=== PATIENT | male | born 1940 | race Caucasian/White ===

== ENCOUNTER 2022-07-21 06:23 | Observation (INO) ==
--- NOTE | 2022-03-19 10:25 | PAT Medication Instructions ---
Medication Instructions Date of Service March 19, 2022 Home Medications aspirin 81 mg tablet,delayed release 81 mg PO QAM chlorthalidone 25 mg tablet 25 mg PO Q OTHER DAY potassium chloride 10 mEq capsule,extended release 10 meq PO QAM apixaban 5 mg tablet (Eliquis) 5 mg PO BID baclofen 10 mg tablet 10 mg PO TID furosemide 20 mg tablet 20 mg PO QAM multivitamin 1 tab PO QAM olmesartan 20 mg tablet 20 mg PO QAM sertraline 50 mg tablet 50 mg PO HS ASK your prescriber and surgeon apixaban 5 mg tablet (Eliquis) 5 mg PO BID (in order for spinal anesthesia, Apixaban/Eliquis needs to be stopped 72 hours/3 days before surgery. Please check if okay with doctor that prescribes this to you) DO NOT take the morning of surgery chlorthalidone 25 mg tablet 25 mg PO Q OTHER DAY potassium chloride 10 mEq capsule,extended release 10 meq PO QAM baclofen 10 mg tablet 10 mg PO TID furosemide 20 mg tablet 20 mg PO QAM multivitamin 1 tab PO QAM olmesartan 20 mg tablet 20 mg PO QAM Take morning of surgery With a small sip of water, OTHERWISE NOTHING TO EAT OR DRINK AFTER MIDNIGHT: aspirin 81 mg tablet,delayed release 81 mg PO QAM (continue as normal unless told otherwise by surgeon) Take evening before surgery baclofen 10 mg tablet 10 mg PO TID sertraline 50 mg tablet 50 mg PO HS Other Notes If you have any questions please call us at [phone] or [phone] or [phone] or [phone]
--- NOTE | 2022-03-22 12:30 | Anesthesiology Consultation ---
Date of Service March 22, 2022 Assessment & Plan (1) Encounter for pre-operative examination: Plan - surgery re-scheduled to 07/07/22 by surgeon's office. - cardiology pre-op evaluation 03/23/22, PH Dr. Ellis. - PCP pre-op evaluation 03/26/22. - will request most recent lower extremity ultrasound. - pacemaker: [employer]. - Outpatient joint assessment: Patient is currently scheduled for inpatient pathway. If re-evaluated pending system levels during current pandemic/surgeon requests outpatient pathway, patient is not acceptable candidate for outpatient joint program from anesthesia standpoint. Chart Review Chart Review: Pending: Refer to Additional Notes / Consult section and Patient seen in Pre Admission Testing Teaching & Discussion Pre-Anesthesia Teaching/Discussion Notes: Instructed NPO after midnight before surgery, except medications with 15 cc of water. Medication instructions provided according to the PAT guidelines. History Surgery Operation Date: 07/07/22 08:50 Proposed Procedures p Left Total Hip Arthroplasty - Bari Tobias MD Height/Weight Height: 5 ft 5 in Weight: 95.254 kg Allergies Allergy/AdvReac Type Severity Reaction Status Date / Time Iodinated Contrast Media Allergy Mild Shakiness Verified 03/17/22 11:20 Medications Home Medications Medication Instructions Recorded Confirmed Last Taken aspirin 81 mg tablet,delayed 81 mg PO QAM 11/05/19 03/17/22 02/06/20 release chlorthalidone 25 mg tablet 25 mg PO Q OTHER DAY 11/05/19 03/17/22 02/11/20 potassium chloride 10 mEq 10 meq PO QAM 11/05/19 03/17/22 02/11/20 capsule,extended release apixaban 5 mg tablet (Eliquis) 5 mg PO BID 03/17/22 03/17/22 Unknown baclofen 10 mg tablet 10 mg PO TID 03/17/22 03/17/22 Unknown furosemide 20 mg tablet 20 mg PO QAM 03/17/22 03/17/22 Unknown multivitamin 1 tab PO QAM 03/17/22 03/17/22 Unknown sertraline 50 mg tablet 50 mg PO HS 03/17/22 03/17/22 Unknown flurbiprofen PRN pain 03/22/22 Unknown Additional Notes: Pt was advised to discuss flurbiprofen with surgeon's office. He verbalized understanding and agreement, denied questions or concerns. 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 Corado -will see on 03/23/22- had procedure to check wires 10/02/2021 ,done at [facility] Dr Ellis Vertigo stable per pt Patient denies h/o stroke, seizures, heart attack, heart failure, DM, or blood transfusions. Exercise / Class Metabolic Activity III < 4 Walking/Shop/Light housework (denies CP or SOB with usual activities, less than 8 steps in home) Past Family History Family History Uncle Diabetes Father Colon cancer Past Surgical History Surgical History History of carpal tunnel surgery of left wrist History of carpal tunnel surgery of right wrist History of colonoscopy History of nasal surgery History of tonsillectomy S/P cardiac pacemaker procedure Past Anesthesia History No Hx of Anesthesia Complications and No Family Hx of Anesthesia Complications History of PONV No Hx of PONV and No Hx of Motion Sickness Social History Smoking Status: Never smoker tobacco type: smokeless tobacco Do You Dip or Chew Tobacco: Yes (advised) Hx Alcohol Use: Yes Alcohol type: beer alcohol intake frequency: a few times a month Hx Substance Use: No substance use type: does not use Review of Systems Patient denies chest pain, shortness of breath, dyspnea on exertion, snoring, witnessed apneas, reflux, fever, chills, cough, wheezing, or palpitations. Physical Exam Vital Signs Vitals BP 137/75 P 57 TEMP 97.7 SP02 96% on RA RESP 18 Physical Full cervical extension range of motion without pain TMD 3.5 finger breadths Mallampati Score 3 Dentition: intact, upper partial; denies chipped or loose teeth, caps/crowns, implants or bridges Lungs: normal respiratory effort. Clear throughout to auscultation, no adventitious breath sounds Cardiac: regular rate and rhythm, no murmurs noted Carotid arteries: negative bruit bilat Lab Results Anesthesia Preop Results Results Anesthesia Widget: WBC 6.73 K/ul (4.8-10.8) 03/22/22 Hgb 13.5 g/dl (14.0-18.0) L 03/22/22 Hct 40.0 % (40.1-51.0) L 03/22/22 Plt 180 K/uL (130-400) 03/22/22 Na 140 mmol/L (136-145) 03/22/22 K 4.8 mmol/L (3.5-5.1) 03/22/22 Cl 104 mmol/L (98-107) 03/22/22 CO2 31 mmol/L (21-32) 03/22/22 BUN 29 mg/dl (6-23) H 03/22/22 Creat 1.33 mg/dl (0.6-1.4) 03/22/22 Glucose Level 76 mg/dl (70-99(Fasting)) 03/22/22 PT 10.9 Seconds (9.0-12.0) 03/22/22 PTT 29.7 Seconds (21.0-31.0) 03/22/22 INR 1.0 (0.9-1.1) 03/22/22 Urine Color Yellow 03/22/22 Urine Appearance Clear (Clear) 03/22/22 Urine pH 5.0 (4.5-7.5) 03/22/22 Urine Specific [place] 1.013 (1.000-1.030) 03/22/22 Urine Protein Negative (Negative) 03/22/22 Urine Glucose (UA) Negative (Negative) 03/22/22 Urine Ketones Negative (Negative) 03/22/22 Urine Blood Negative (Negative) 03/22/22 Urine Nitrite Negative (Negative) 03/22/22 Urine Bilirubin Negative (Negative) 03/22/22 Urine Urobilinogen Negative (Negative) 03/22/22 Urine Leukocyte Esterase Negative (Negative) 03/22/22 Blood Type O Positive 03/22/22 Antibody Screen NEGATIVE 03/22/22 Testing Electrocardiogram Date: 09/28/21 Ventricular pacing, rate 72 bpm 03/22/22 at PAT appt AV dual paced with prolonged AV conduction, rate 50 bpm Chest X-Ray Date: 03/22/22 No pneumothorax. No pleural effusions. No focal lung consolidations to suggest a pneumonia. No evidence for pulmonary edema. The heart is top normal in size. There is left-sided pacemaker. There are low lung volumes. Degenerative changes noted within the thoracic spine. Mildly tortuous thoracic aorta. IMPRESSION: No acute process. Echocardiogram Date: 09/28/21 EF 56% No regional wall motion abnormalities were noted Moderately thickened trileaflet aortic valve, no aortic stenosis. Trace aortic regurgitation Pacer/ICD electrode noted in RV/RA Stress Test Date: 07/26/17 Pharmacologic MPHR not listed on report EF 58% Normal without evidence for pharmacologically induced ischemia COVID-19 Risk Screen Screening Information COVID-19 Screen Date: 03/22/22 Exposure 21 Days Family/Household +COVID Last 21 Days: No Exposure 10 Days Any COVID Exposure Last 10 Days: No Symptoms Last 10 Days Experienced COVID Sx Last 10 Days: No + COVID 0-90 Days COVID + in Last 0-90 Days: No
--- NOTE | 2022-06-29 09:15 | PAT Medication Instructions ---
Medication Instructions Date of Service June 29, 2022 Home Medications aspirin 81 mg tablet,delayed release 81 mg PO QAM chlorthalidone 25 mg tablet 25 mg PO Q OTHER DAY potassium chloride 10 mEq capsule,extended release 10 meq PO QAM apixaban 5 mg tablet (Eliquis) 5 mg PO BID baclofen 10 mg tablet 10 mg PO TID furosemide 20 mg tablet 20 mg PO QAM multivitamin 1 tab PO QAM sertraline 50 mg tablet 50 mg PO HS ASK your prescriber and surgeon apixaban 5 mg tablet (Eliquis) 5 mg PO BID (in order for spinal anesthesia, Apixaban/Eliquis needs to be stopped 72 hours/3 days before surgery. Please check if okay with doctor that prescribes this to you) DO NOT take the morning of surgery chlorthalidone 25 mg tablet 25 mg PO Q OTHER DAY potassium chloride 10 mEq capsule,extended release 10 meq PO QAM baclofen 10 mg tablet 10 mg PO TID furosemide 20 mg tablet 20 mg PO QAM multivitamin 1 tab PO QAM Take morning of surgery With a small sip of water, OTHERWISE NOTHING TO EAT OR DRINK AFTER MIDNIGHT: aspirin 81 mg tablet,delayed release 81 mg PO QAM (continue as normal unless t old otherwise by surgeon) Take evening before surgery baclofen 10 mg tablet 10 mg PO TID sertraline 50 mg tablet 50 mg PO HS Other Notes If you have any questions please call us at [phone] or [phone] or [phone] or [phone]
--- NOTE | 2022-06-29 15:42 | Anesthesiology Consultation ---
Date of Service June 29, 2022 Assessment & Plan (1) Encounter for pre-operative examination: - COVID screening: Per assessment on 06/29: No known COVID-19 positive contacts or current COVID-19 related symptoms. Travel screen negative. Patient vaccinated. At surgeon discretion if preop Covid testing being done. - Outpatient joint assessment: Pt currently scheduled for inpatient pathway. If surgeon requests review for outpatient joint pathway, patient is not recommended candidate for outpatient joint program from anesthesia standpoint. - Hematology office visit (06/01/22): "Per the patient, he noted bilateral lower extremity swelling for approximately 1 month, which prompted his primary care provider to obtain ultrasounds. Bilateral venous duplex ultrasounds of the lower extremity on 01/07/22 reported a non- occlusive right popliteal vein deep vein thrombosis.. He started on Eliquis.. Repeat ultrasound after 2 months of the Eliquis (03/03/22) reported a stable appearance of the non- occlusive deep vein thrombosis of the right popliteal vein with extension into the tibial peroneal trunk. The remainder of the deep veins were patent. Third ultrasound on 05/05/22 again reported a chronic non- occlusive thrombus of the proximal popliteal vein to the tibial peroneal trunk.. He states he is pending a total left hip replacement.. June 2022.. Patient has a chronic deep vein thrombosis, which has been stable over several ultrasounds.. The likelihood the patient will have clearance of the deep vein thrombosis is low. Patient advised that a chronic deep vein thrombosis do not necessitate lifelong anticoagulation.. As the patient is pending a left hip replacement, would recommend continuing his anticoagulation until after this procedure.. Patient may hold the Eliquis 24-48 hours prior to surgery and resume at the discretion of the surgeon.. No indication for further hypercoagulability work-up." Patient was made aware at subsequent PAT visit 06/29/22 that Eliquis needs to be held 72 hours prior to surgery for spinal anesthesia- he was advised to check with prescriber if okay to hold 72 hours preoperatively- voiced understanding. - Cardiac hx: Per patient, surgeon is arranging preop cardiology evaluation (Dr. Corado- not scheduled yet). Awaiting surgeon-ordered cardiology preop evaluation (Dr. Corado, appt TBD) as well as most recent pacer check. - Elevated creatinine: Preop labs done 06/29/22 show elevated creatinine at 1.55. No known hx of CKD reported or noted through chart review of available records. Note sent to PCP- awaiting response (Dr. Magen Acosta). Chart Review Chart Review: Patient seen in Pre Admission Testing History Surgery Operation Date: 07/21/22 09:20 Proposed Procedures p Left Total Hip Arthroplasty - Bari Tobias MD Height/Weight Height: 5 ft 5 in Weight: 98.7 kg Allergies Allergy/AdvReac Type Severity Reaction Status Date / Time Iodinated Contrast Media Allergy Mild Shakiness Verified 06/29/22 08:25 Medications Home Medications Medication Instructions Recorded Confirmed Last Taken aspirin 81 mg tablet,delayed 81 mg PO QAM 11/05/19 06/29/22 02/06/20 release chlorthalidone 25 mg tablet 25 mg PO Q OTHER DAY 11/05/19 06/29/22 02/11/20 potassium chloride 10 mEq 10 meq PO QAM 11/05/19 06/29/22 02/11/20 capsule,extended release apixaban 5 mg tablet (Eliquis) 5 mg PO BID 03/17/22 06/29/22 Unknown baclofen 10 mg tablet 10 mg PO TID 03/17/22 06/29/22 Unknown furosemide 20 mg tablet 20 mg PO QAM 03/17/22 06/29/22 Unknown multivitamin 1 tab PO QAM 03/17/22 06/29/22 Unknown sertraline 50 mg tablet 50 mg PO HS 03/17/22 06/29/22 Unknown Past Medical History Medical History 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 [facility] Cardiology/Dr. Corado. Vertigo stable per pt Exercise / Class Metabolic Activity III < 4 Walking/Shop/Light housework Past Family History Family History Uncle Diabetes Father Colon cancer Other No family history of adverse response to anesthesia Past Surgical History Surgical History History of carpal tunnel surgery of left wrist History of carpal tunnel surgery of right wrist History of colonoscopy History of nasal surgery History of tonsillectomy S/P cardiac pacemaker procedure Past Anesthesia History No Hx of Anesthesia Complications and No Family Hx of Anesthesia Complications History of PONV No Hx of PONV and No Hx of Motion Sickness Social History Smoking Status: Never smoker tobacco type: smokeless tobacco Do You Dip or Chew Tobacco: No (Quit 02/2022) Hx Alcohol Use: Yes Alcohol type: beer alcohol intake frequency: a few times a month Hx Substance Use: No substance use type: does not use Review of Systems Patient denies chest pain, shortness of breath, fever, chills, cough, wheezing, palpitations. Physical Exam Vital Signs VITALS BP 103/64 P 71 TEMP 98.4 SP02 94%RA RESP 16 PHYSICAL Full cervical extension range of motion. Full TMJ range of motion. TMD 3 finger breaths Mallampati Score 3 Dentition: upper partial Lungs: clear throughout to auscultation Cardiac: regular rate and rhythm, distant heart sounds Spine: normal Carotid arteries: negative bruit Extremities: no edema Lab Results Anesthesia Preop Results Results Anesthesia Widget: WBC 7.50 K/ul (4.8-10.8) 06/29/22 Hgb 13.9 g/dl (14.0-18.0) L 06/29/22 Hct 40.5 % (42.0-52.0) L 06/29/22 Plt 211 K/uL (130-400) 06/29/22 Na 140 mmol/L (136-145) 06/29/22 K 4.0 mmol/L (3.5-5.1) 06/29/22 Cl 105 mmol/L (98-107) 06/29/22 CO2 28 mmol/L (21-32) 06/29/22 BUN 34 mg/dl (6-23) H 06/29/22 Creat 1.55 mg/dl (0.6-1.4) H 06/29/22 Glucose Level 89 mg/dl (70-99(Fasting)) 06/29/22 PT 11.0 Seconds (9.0-12.0) 06/29/22 PTT 28.6 Seconds (21.0-31.0) 06/29/22 INR 1.0 (0.9-1.1) 06/29/22 Urine Color Dark Yellow 06/29/22 Urine Appearance Clear (Clear) 06/29/22 Urine pH 5.5 (4.5-7.5) 06/29/22 Urine Specific [place] 1.018 (1.000-1.030) 06/29/22 Urine Protein Negative (Negative) 06/29/22 Urine Glucose (UA) Negative (Negative) 06/29/22 Urine Ketones Negative (Negative) 06/29/22 Urine Blood Negative (Negative) 06/29/22 Urine Nitrite Negative (Negative) 06/29/22 Urine Bilirubin Negative (Negative) 06/29/22 Urine Urobilinogen Negative (Negative) 06/29/22 Urine Leukocyte Esterase Negative (Negative) 06/29/22 Blood Type O Positive 06/29/22 Antibody Screen NEGATIVE 06/29/22 Testing Electrocardiogram Date: 03/22/22 AV dual paced with prolonged AV conduction, rate 50 bpm Chest X-Ray Date: 03/22/22 No pneumothorax. No pleural effusions. No focal lung consolidations to suggest a pneumonia. No evidence for pulmonary edema. The heart is top normal in size. There is left-sided pacemaker. There are low lung volumes. Degenerative changes noted within the thoracic spine. Mildly tortuous thoracic aorta. IMPRESSION: No acute process. Echocardiogram Date: 09/28/21 EF 56% No regional wall motion abnormalities were noted Moderately thickened trileaflet aortic valve, no aortic stenosis. Trace aortic regurgitation Pacer/ICD electrode noted in RV/RA Stress Test Date: 07/26/17 Pharmacologic MPHR not listed on report EF 58% Normal without evidence for pharmacologically induced ischemia COVID-19 Risk Screen Screening Information COVID-19 Screen Date: 06/29/22 Exposure 21 Days Family/Household +COVID Last 21 Days: No Exposure 10 Days Any COVID Exposure Last 10 Days: No Symptoms Last 10 Days Experienced COVID Sx Last 10 Days: No + COVID 0-90 Days COVID + in Last 0-90 Days: No
[~2022-07-21 06:23] MED LIST: LR 60ML/HR IV SCH; ROPIVACAINE 0.5% HCL/PF 150 MG, BUPIVACAINE 0.75% MPF 20 ML, EPINEPHrine 0.15 MG, Ketor... INFIL SCH; TRANEXAMIC ACID 1,000 MG x 1 **For Topical Use TOP SCH; ceFAZolin 2000MG 2,000 MG/15 ML SYR IV SCH
[2022-07-21] MEDS ORDERED: BUPIVACAINE 0.5 % 5 MG/1 ML PF 10ML VIAL ONE (06:25)
--- NOTE | 2022-07-21 06:39 | History & Physical Bridge Note ---
Date of Service July 21, 2022 History & Physical Bridge Note I have examined the patient, reviewed the History & Physical and in the interval since the performance of the History & Physical I have noted the following changes of clinical significance: consent obtained/site verified.no changes noted
[2022-07-21] MEDS ORDERED: MIDAZOLAM HCL 1 MG/ML 2ML VIAL ONE (07:38)
[2022-07-21] MEDS ORDERED: fentaNYL citrate 100 MCG/2 ML VIAL ONE (07:38)
[2022-07-21] MEDS ORDERED: ORTHO JOINT ANESTHETIC ONE (08:58)
[2022-07-21] MEDS ORDERED: ATROPINE SULFATE 0.1 MG/ML 10ML SYR IV PRN (09:11)
[2022-07-21] MEDS ORDERED: fentaNYL citrate 100 MCG/2 ML VIAL IV PRN (09:11)
[2022-07-21] MEDS ORDERED: ONDANSETRON INJ 2 MG/ML 2 ML VIAL IV PRN ×2 (09:11→12:47)
[2022-07-21] MEDS ORDERED: ePHEDrine sulfate 50 MG/ML AMP IV PRN (09:11)
[2022-07-21] MEDS ORDERED: PROPOFOL IV EMULSION 10 MG/ML 20 ML VIAL IV ONE ×2 (09:33→10:17)
[2022-07-21] MEDS ORDERED: ePHEDrine sulfate 50 MG/ML SYR ONE (09:33)
[2022-07-21] MEDS ORDERED: ONDANSETRON INJ 2 MG/ML 2 ML VIAL ONE (09:33)
[2022-07-21] MEDS ORDERED: PHENYLEPHRINE HCL 10 MG/ML VIAL ONE (10:11)
--- NOTE | 2022-07-21 10:46 | Post Operative Brief Note ---
Immediate Post Op Note v1 Date of Surgery July 21, 2022 Pre & Post Diagnosis Operation Date: 07/21/22 09:00 Pre-Op Diagnosis: Left Hip Degenerative Joint Disease Post-Op Diagnosis: Left Hip Degenerative Joint Disease I identified the patient and participated in the time-out.: Yes Procedure Operation Date: 07/21/22 09:00 Actual Procedures p Left Total Hip Arthroplasty, Uncemented(Left) - Bari Tobias MD Surgeon Bari Tobias MD Thrill Performer Ramesh/MS 2 Rahul Estimated Blood Loss 100 Findings Consistent with Post-Op Diagnosis
--- NOTE | 2022-07-21 11:01 | Operative Report ---
Post Operative Report Pre & Post Diagnosis Operation Date: 07/21/22 09:00 Pre-Op Diagnosis: Left Hip Degenerative Joint Disease Post-Op Diagnosis: Left Hip Degenerative Joint Disease I identified the patient and participated in the time-out.: Yes Procedure Operation Date: 07/21/22 09:00 Actual Procedures p Left Total Hip Arthroplasty, Uncemented(Left) - Bari Tobias MD Surgeon TAMIKO Tobias MD Medical Billing Service Ramesh REID/ 2 Rahul Estimated Blood Loss 100 Findings Consistent with Post-Op Diagnosis see operative report Specimens see operative report Drains none Complications none Disposition Accompanied Patient To Recovery: Yes Indications This 81 year old male presented to the office with complaints of persisting left hip pain. He had tried conservative care measures without improvement. Pain was worse with weightbearing and was preventing him from doing activities that he desired. He elected to proceed with surgical intervention in hopes of improving his pain and function. Preoperative imaging was obtained. Description of Procedure The patient was administered a spinal anesthetic and then taken to the operating room where he was given sedation. He was prepped and draped in the usual sterile fashion. Please see Dr. Tobias's operative report for specifics of the procedure. I was present for the entire case from initial patient positioning through final wound closure. Assistance was provided in tissue retraction, hemostasis, trial implant placement, final implant placement, and final wound closure. Patient was taken to the recovery room in satisfactory condition. I attest to the content of the Intraoperative Record and any orders documented therein. Any exceptions are noted below.
--- NOTE | 2022-07-21 11:08 | Operative Report (OR) ---
DATE OF PROCEDURE: 07/21/2022 SURGEON: Bari Tobias MD. COPY CHIEF: Jonathan Chandler PA-C. SECOND COPY CHIEF: FABIAN Ho. PREOPERATIVE DIAGNOSIS: Osteoarthritis, left hip. POSTOPERATIVE DIAGNOSIS: Osteoarthritis, left hip. OPERATION PERFORMED: Noncemented left total hip replacement. PERIOPERATIVE SITUATION: Medically cleared male with intractable hip pain. Physical exam, x-ray, an d clinical history consistent with severe osteoarthritis of his hip. DESCRIPTION OF PROCEDURE: After the patient was appropriately identified, site verified, consent bree ified, the left lower extremity was prepped and draped in the usual routine fashion with the patient in left lateral decubitus position. Posterior approach to the hip was then made. Sharp dissection c arried through skin, blunt dissection down to the fascia. This was then incised under direct vision. The gluteus jessica fascia and the IT band was then split and retractors placed. Care was taken to protect the sciatic nerve. The short external rotators were identified and released. The capsule was then T'd. The hip was the n dislocated. The femoral neck was then resected. There was a large inverted labrum anteriorly. Th ere was a significant disease of the posterior acetabulum. Femoral head was completely denuded of an y cartilage. Excellent exposure was obtained and serial reaming carried up to a 54, and a 54 cup imp acted into appropriate anteversion and inclination. Additional 6.5 x 30 screw was placed with excell ent purchase. The wound was then irrigated. The trial liner was then seated. The hip was then flexed, internally rotated. Serial rasping up to a size 3 was then performed. Trial reduction with a +5 head was very stable, but the hip was slightly short, so we elected to go with the 8.5. The hip was then dislocated. All trial remaining elements removed. The hole eliminator seated after irrigation with Betadine and Pulsavac. The permanent liner seated, permanent head and stem seated. The hip reduced. It was stable in all planes. Leg lengths were just about equal. The wound was irrigated one final time with TXA for 3 minutes and then with Betadine Pulsavac, and th en closed. The short external rotators and capsule closed with #2 Vicryl, the gluteal jessica fascia with the same, the subcutaneous layer deep with the same, and the superficial with 2-0 Vicryl and sta inless steel clips. 40 mL of Orthomix was injected superficially. The wound was then appropriately dressed. The patient was transferred to recovery room in satisfactory condition, having tolerated the procedur e well. SUMMARY OF IMPLANTS: [employer] total hip replacement system, hole eliminator, 54 acetabular shell sector cup, 30 mm x 6.5 screw, 36 x 54 neutral liner, 3 standard Tri-Lock stem, 36+8.5 ceramic head. This is again a [place] acetabular shell sector cup. BONE PATHOLOGY: Pending. CRYSTALLOID: Per anesthesia. DEEP VENOUS THROMBOSIS PROPHYLAXIS: Per protocol. ESTIMATED BLOOD LOSS: Roughly 100 mL. Job ID: [id number]
--- NOTE | 2022-07-21 11:17 | Progress Notes ---
SUBJECTIVE: Postop check status post left total hip replacement. The patient is comfortable in bed. Denies chest pain, shortness of breath, fever, chills, nausea, vomiting or headache. Wound dressing clean, dry, and intact. OBJECTIVE: Vital signs are stable. He is afebrile. Neurovascular check femoral sciatic nerve limited by spinal. IMAGING DATA: X-rays, AP pelvis and hips reveal well-fixed, well-aligned hip replacement on the left . ASSESSMENT: Doing well clinically, status post total hip replacement. PLAN: Continue with care pathway. DVT prophylaxis with Eliquis to start after 24 hours postoperative. Will start at half-strength dose and then at 72 hours get him back on the standard dose. Job ID: [id number]
--- NOTE | 2022-07-21 11:24 | Discharge Summary (DS) ---
DATE OF ADMISSION: 07/21/2022 DATE OF POTENTIAL DISCHARGE: 07/22/2022 CHIEF COMPLAINT: Left hip osteoarthritis, severe. HISTORY OF PRESENT ILLNESS: Medically cleared 81-year-old who has had severe disease. It is markedl y painful and he is limping. He notes that he has difficulty sleeping. He wished to proceed with poole rgical treatment for his hip. Hip replacement is indicated. His surgery was previously postponed due to an insidious onset DVT in his right lower extremity. He also needed some dental work. 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 This was stopped roughly 3 days preop. REVIEW OF SYSTEMS: Reveals no chest pain, shortness of breath, fever, chills, nausea, vomiting or he adache. SOCIAL HISTORY: Reveals he does not smoke. ALLERGIES: ALLERGIC TO IODINE CONTRAST MEDIA. PAST MEDICAL HISTORY: Active problem list includes gait disturbance, hip pain, arthritis in his knee s. PREADMISSION MEDICATIONS: Include aspirin, baclofen, chlorthalidone, Eliquis, ____ibuprofen, furosem eva, mirtazapine, olmesartan, and sertraline. Postop x-rays look excellent. ASSESSMENT AND PLAN: Status post left total hip replacement. Continue with care pathway. Restart h betsy-strength Eliquis after 24 hours postoperatively and resume normal dose after 72 hours postoperati nicoley. Will need a pressure dressing for several weeks. Job ID: [id number]
--- NOTE | 2022-07-21 11:34 | XRay Report ---
XR pelvis 1-2V routine HISTORY: 81 years-old Male S/P L HUANG left hip total joint arthroplasty COMPARISON: Pelvis and hip radiographs 06/08/2022 TECHNIQUE: AP view of the pelvis FINDINGS: Severe osteoarthritis of the right hip. Satisfactory alignment of the left hip total joint arthroplas ty. No acute fracture or malalignment. Lateral skin олег are present along with expected postopera tive soft tissue swelling with deep tissue air. IMPRESSION: Left hip total joint arthroplasty with expected postoperative changes. ACT 112: Negative or not required by law. The above report was generated using voice recognition software. It may contain grammatical, syntax o r spelling errors. Electronically signed by: David Fine M.D. 07/21/2022 11:33 AM
--- NOTE | 2022-07-21 12:27 | Anesthesiology Progress Note ---
Date of Service July 21, 2022 Anesthesia Post Procedure Vital Signs Vital Signs: Temp Pulse Pulse Resp BP Pulse Ox O2 Del Method 07/21/22 12:00 36.5 C 69 15 109/56 L 100 Nasal Cannula 07/21/22 11:45 36.5 C 67 12 114/58 L 100 Nasal Cannula 07/21/22 11:40 36.3 C L 65 15 107/59 L 100 Nasal Cannula 07/21/22 11:30 36.3 C L 70 17 98/58 L 100 Nasal Cannula 07/21/22 11:20 36.3 C L 67 14 102/56 L 97 Oxymask 07/21/22 11:10 36.3 C L 68 15 96/59 L 98 Oxymask 07/21/22 11:00 36.3 C L 74 19 85/53 L 98 Oxymask 07/21/22 07:19 36.7 C 70 20 160/79 H 94 Room Air O2 Flow Rate 07/21/22 12:00 2 07/21/22 11:45 2 07/21/22 11:40 4 07/21/22 11:30 5 07/21/22 11:20 9 07/21/22 11:10 9 07/21/22 11:00 9 07/21/22 07:19 Transfer of Care Handoff Completed per policy Notes Mental Status: alert / awake / arousable Patient Amnestic to Procedure: Yes Nausea / Vomiting: adequately controlled Pain: adequately controlled Airway Patency, RR, SpO2: stable & adequate BP & HR: stable & adequate Hydration State: stable & adequate Anesthetic Complications: no major complications apparent
[2022-07-21] MEDS ORDERED: HYDROmorphone INJ 0.5 MG/0.5 ML SYR IV PRN (12:47)
[2022-07-21] MEDS ORDERED: METOCLOPRAMIDE HCL INJ 5 MG/ML 2 ML VIAL IV PRN (12:47)
[2022-07-21] MEDS ORDERED: NALOXONE HCL 0.4 MG/1 ML VIAL/CARP IV PRN (12:47)
[2022-07-21] MEDS ORDERED: ALUMINUM/MAGNESIUM SUSP 30 ML UDC PO PRN (12:47)
[2022-07-21] MEDS ORDERED: oxyCODONE HCL IR 5 MG TAB (IMMEDIATE RELEASE) PO PRN (12:47)
[2022-07-21] MEDS ORDERED: TAMSULOSIN HCL 0.4 MG CAP PO PRN (12:47)
[2022-07-21] MEDS ORDERED: MAGNESIUM HYDROXIDE SUSP 30 ML UDC PO PRN (12:47)
[2022-07-21] MEDS ORDERED: diphenhydrAMINE 50 MG/ML VIAL IV PRN (12:47)
[2022-07-21] MEDS ORDERED: SODIUM CHLORIDE 0.9% 1000ML 1,000 ML IV SCH (12:47)
[2022-07-21] MEDS ORDERED: bisacodyL 10 MG SUPP PR PRN (12:47)
[2022-07-21] MEDS ORDERED: CHLORTHALIDONE 25 MG TAB PO SCH (14:00)
[2022-07-21] MEDS: ACETAMINOPHEN 500 MG TAB PO SCH ×2 (14:28→21:26)
[2022-07-21] MEDS: BACLOFEN 10 MG TAB PO SCH ×2 (14:28→21:25)
[2022-07-21] MEDS: KETOROLAC TROMETHAMINE 15 MG/ML VIAL IV SCH ×2 (14:28→21:26)
[2022-07-21] MEDS: ASCORBIC ACID 500 MG TAB PO SCH (17:26)
[2022-07-21] MEDS: FERROUS GLUCONATE 324 MG TAB PO SCH (17:26)
[2022-07-21] MEDS: ceFAZolin 2000MG 2,000 MG/15 ML SYR IV SCH (17:48)
[2022-07-21] MEDS ORDERED: SENNA 8.6 MG TAB PO SCH (21:00)
[2022-07-21] MEDS ORDERED: SERTRALINE HCL 50 MG TABLET PO SCH (21:00)
[2022-07-21] MEDS: DOCUSATE SODIUM 100 MG CAP PO SCH (21:24)
[2022-07-22] MEDS: ceFAZolin 2000MG 2,000 MG/15 ML SYR IV SCH (01:53)
[2022-07-22] MEDS: KETOROLAC TROMETHAMINE 15 MG/ML VIAL IV SCH ×2 (01:54→08:45)
[2022-07-22] MEDS: ACETAMINOPHEN 500 MG TAB PO SCH (05:58)
--- NOTE | 2022-07-22 06:42 | Progress Notes ---
DATE OF SERVICE: 07/22/2022. SUBJECTIVE: Postop check status post left total hip replacement, postoperative day #1. The patient i s resting comfortably. He denies any chest pain, shortness of breath, fever, chills, nausea, vomitin g or headache. He is only taking Tylenol and Toradol for pain. He is very happy with that. OBJECTIVE: VITAL SIGNS: Stable. He is afebrile. He is well saturated on room air at 96%. EXTREMITIES: Femoral sciatic nerve function is good, hip located, good supple rotation. Wound dress ing clean, dry and intact. Calves nontender. LABORATORY DATA: A.m. labs are pending. ASSESSMENT: Doing well. Continue with care pathway. Discharge plans per case management. Once aga in start his Eliquis at 24 hours postop at the half strength dose for prophylaxis and then at 72 hour s go back to his treatment dose. Job ID: [id number]
[2022-07-22 06:47] LABS: Basophils # (auto) 0.01 K/uL (0-0.2); Basophils % (auto) 0.1 %; Eosinophils # (auto) 0.04 K/uL (0-0.50); Eosinophils % (auto) 0.4 %; Hemoglobin 11.3 g/dl (14.0-18.0); Immature Granulocytes # (auto) 0.04 K/uL (0.01-0.20); Immature Granulocytes % (auto) 0.4 %; Lymphocytes # (auto) 1.32 K/uL (1.2-3.4); Lymphocytes % (auto) 14.6 %; Mean Corpuscular Hemoglobin 31.8 pg (25.0-34.0); Mean Corpuscular Hgb Conc 34.2 g/dL (32.0-36.0); Mean Platelet Volume 9.9 fL (9.4-12.4); Monocytes # (auto) 0.85 K/uL (0.11-0.59); Monocytes % (auto) 9.4 %; Neutrophils # (auto) 6.81 K/uL (1.40-6.50); Neutrophils % (auto) 75.1 %; Platelet Count 153 K/uL (130-400); RDW Coefficient of Variation 12.9 % (11.5-14.5); RDW Standard Deviation 44.1 fL (36.4-46.3); Red Blood Count 3.55 M/uL (4.70-6.10); White Blood Count 9.07 K/ul (4.8-10.8)
[2022-07-22 07:05] LABS: BUN Creatinine Ratio 19.6 (10-20); Calcium 8.7 mg/dl (8.5-10.1); Creatinine Clr Calc Pharmacy 44.2 ml/min; Est GFR (African American) 53.2 ml/min; Est GFR (Non-African American) 45.9 ml/min; Potassium 4.1 mmol/L (3.5-5.1)
[2022-07-22] MEDS ORDERED: dexAMETHasone 10 MG in SYRINGE 0 ML IV SCH (08:00)
[2022-07-22] MEDS: BACLOFEN 10 MG TAB PO SCH (08:45)
[2022-07-22] MEDS: DOCUSATE SODIUM 100 MG CAP PO SCH (08:46)
[2022-07-22] MEDS: FERROUS GLUCONATE 324 MG TAB PO SCH (08:46)
[2022-07-22] MEDS: ASCORBIC ACID 500 MG TAB PO SCH (08:47)
[2022-07-22] MEDS ORDERED: MULTIVITAMIN TAB PO SCH (09:00)
[2022-07-22] MEDS ORDERED: APIXABAN 2.5 MG TAB PO SCH (09:00)
[2022-07-22] MEDS ORDERED: POTASSIUM CHLORIDE 10 MEQ TABCR PO SCH (09:00)
[2022-07-22] MEDS ORDERED: FUROSEMIDE 20 MG TAB PO SCH (09:00)
[2022-07-22] MEDS ORDERED: ASPIRIN 81 MG ECTAB PO SCH (09:00)
--- NOTE | 2022-07-22 10:28 | Orthopedic Progress Note ---
Date of Service July 22, 2022 Assessment & Plan (1) Status post total hip replacement, left: Plan: Patient's left hip dressing was changed today by me. Raymond stocking was applied. He will keep this dry and in place until Tuesday. It can then be changed as needed for soiling. Importance of doing his exercises was emphasized. Ambulate with his walker. Maintain total hip precautions. Continue his Eliquis daily. He will use 2.5 mg twice daily today and tomorrow, and resume his normal 5 mg on Tuesday. Ice the hip frequently to reduce pain and swelling. Follow-up in the office in 2 weeks with me as scheduled for staple removal. Written discharge instructions were provided. Admission and Anticipated Discharge Date Admission Date: July 21, 2022 Subjective Patient is seen in his room this morning. He states he did well overnight. He was out of bed yesterday. He did not walk in the hines. He is currently participating in occupational therapy. He denies any chest pain, shortness of breath, nausea, vomiting, dizziness, or abdominal pain. He feels pretty well. No other complaints. Review of Systems Review of Systems: Unchanged from yesterday Physical Exam Physical Exam: General: Well-developed, well-nourished, elderly male, in no acute distress. Sitting on his bed. Alert and oriented. Conversive. Skin: Warm and dry with good turgor. No rashes or lesions. No ecchymosis or edema. Postsurgical dressing is in place on the left hip. Upon removal, he has a small amount of dried blood present on his inner dressings. Marcos are intact. Wound edges are well approximated. No erythema or warmth. He does have some punctate bleeding present from the surgical site. Musculoskeletal: Patient has intact motor function for the left hip, knee, and ankle. He is able to stand at bedside with minimal assistance. He is also able to sit himself on the bed with minimal assistance. Neurologic: Gross sensation is intact across the left leg by soft touch. Peripheral pulses are 2+. Results & Data ([facility]) Vital Signs (Past 12 Hours) Vital Signs Temp Pulse Pulse Resp BP Pulse Ox O2 Del Method 07/22/22 08:13 36.8 C 64 18 104/61 92 Room Air 07/22/22 03:54 36.7 C 70 17 102/58 L 96 Room Air 07/22/22 00:10 36.8 C 75 17 110/63 95 Room Air Laboratory Results CBC obtained this morning shows a white count of 9.07. Hemoglobin 11.3. Hematocrit 33.0. Platelets 153,000. PRP shows sodium 138, potassium 4.1, chloride 105, CO2 28, BUN of 28, creatinine 1.43. Glucose 109.
== END 2022-07-22 11:24 ==
LOC: ASU 06:23 → 3E 06:23

== ENCOUNTER 2022-08-08 13:32 | Inpatient (IN) ==
[2022-08-08] MEDS ORDERED: DEXTROSE 5% IV STA (13:56)
[2022-08-08] MEDS ORDERED: PANTOPRAZOLE IV STA (13:56)
[2022-08-08] MEDS ORDERED: SODIUM CHLORIDE 0.9% 1000ML 1,000 ML IV ONE (14:00)
[2022-08-08] MEDS ORDERED: SODIUM CHLORIDE 0.9% 250 ML IV PRN ×2 (14:00→14:39)
--- NOTE | 2022-08-08 14:03 | Emergency Department Note ---
Impression & Plan GI bleed, Symptomatic anemia ED Provider Note NAME: GUERLINE CHI AGE: 81 SEX: M : 1940 ARRIVES VIA: Walk-In INFORMANT: Patient ED PROVIDER(S): Caesar Rothman DO CHIEF COMPLAINT: weak HPI: Patient is an 81-year-old male who had left hip replaced back in July. He was started on Eliquis. He notes that he has been feeling very weak, tired and rundown for the past several days. On Tuesday started with black/dark tarry stools. This has been persistent. Lightheadedness is worse with moving around. Improves with rest. Denies any chest pain or shortness of breath. No belly pain. No nausea vomiting or diarrhea. No dysuria urgency or frequency. No other exacerbating or remitting factors. PAST MEDICAL HISTORY:See Below PAST SURGICAL HISTORY:See Below FAMILY HISTORY:See Below SOCIAL HISTORY:See Below HOME MEDICATIONS:See Below ALLERGIES:See Below VITALS:See Below PHYSICAL EXAMINATION: GENERAL: Sitting up in bed, alert, well appearing, well nourished, no distress, non-toxic EYE EXAM: normal conjunctiva. OROPHARYNX: no exudate, no erythema, lips, buccal mucosa, and tongue normal and mucous membranes are moist NECK: supple, no nuchal rigidity, no adenopathy, non-tender LUNGS: Clear to auscultation. Normal chest wall mechanics HEART: no murmurs, S1 normal and S2 normal ABDOMEN: abdomen soft, non-tender, normo-active bowel sounds, no masses, no rebound or guarding. RECTAL: Dark melena UPPER EXTREMITIES: upper extremities are grossly normal. LOWER EXTREMITIES: No pitting edema. NEURO EXAM: Normal sensorium, cranial nerves II-XII grossly intact, normal speech, no gross weakness of arms, no gross weakness of legs. MEDICAL DECISION MAKING: Patient is an 81-year-old male who presents the ER for dizzy lightheadedness. Pulverization is found to have systolic pressures in the 80s. IV was established blood work was obtained. Hemoglobin at 7.9 down from 11-12. Rectal shows melena BMP with creatinine 1.4 and a BUN elevated at 55 secondary to the rectal bleed. LFTs bilirubin was unremarkable. Troponin was negative. No chest pain or shortness of breath. Patient was typed and crossed and given 2 units of PRBCs while in the ER. Placed on Protonix drip and bolus. Discussed with Dr. Rogers from gastroenterology who recommends n.p.o. after midnight and he will scope in the morning. Discussed with the hospitalist for further evaluation management and treatment. Systolic pressures trended up from the 80s to low 100s with fluids and blood. Patient did take his morning dose of the NOAC which was not reversed as he did not take his afternoon dose. Vitals were improving. Triage Nursing notes reviewed. Limited review of prior medical records performed Vital Signs: reviewed and remarkable for hypotension Differential diagnosis: Differential diagnosis includes etiologies such as diverticulitis, diverticulosis, AVM, coagulopathy, colitis, inflammatory bowel disease, malignancy, Alesia-Jhaveri tear, esophagitis, peptic ulcer disease, variceal bleed, gastritis, epistaxis, fissure, hemorrhoids, as well as others were entertained. ER treatment provided: See below Diagnostics interpreted by me include EKG and cardiac monitoring as listed below: -Cardiac Monitoring: An order was placed for continuous cardiac monitoring. The monitor shows a rate of 82 with sinus rhythm. -ECG: Atrial sensed ventricular paced rate of 75 Left axis Right bundle No PVCs QTc 480 -Laboratory studies:Interpreted by me as stated above in MDM and shown below. Imaging studies: Xrays: As interpreted by me: Portable AP upright 1 view shows no PNA CTs show: none Consultation(s): As described in MDM Procedures:none Critical Care: I have personally spent 32 minutes of critical care time in the direct management of this patient. This includes bedside care, interpretation of diagnostic studies, and testing, discussion with consultants, patient, and family members, and other required patient management activities. This 32 minutes is in excess of all separately billable procedures. Past Med/Surg History Medical History (Updated 08/08/22 @ 19:10 by Caesar Rothman DO) 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 [facility] Cardiology/Dr. Corado. Vertigo stable per pt Surgical History (Updated 07/22/22 @ 10:26 by Jonathan Chandler PA-C) History of carpal tunnel surgery of left wrist History of carpal tunnel surgery of right wrist History of colonoscopy History of nasal surgery History of tonsillectomy S/P cardiac pacemaker procedure Family History Uncle Diabetes Father Colon cancer Other No family history of adverse response to anesthesia Social History Smoking Status: Never smoker Second Hand Exposure: No; Hx Alcohol Use: Yes Alcohol type: beer Hx Substance Use: No Preferred Language: French Communication Ability: Effective Concreter Required: No Beliefs That Will Affect Care: None Current Living Situation: Spouse Other Information That Helps Us Care for You: No Feels Safe at Home: Yes Assistive Devices: Cane, Denture - Upper, Glasses and Walker Allergies Allergies Allergy/AdvReac Type Severity Reaction Status Date / Time Iodinated Contrast Media Allergy Mild Shakiness Verified 08/08/22 15:54 Home Meds Home Medications Medication Instructions Recorded Confirmed aspirin 81 mg tablet,delayed 81 mg PO QAM 11/05/19 08/08/22 release chlorthalidone 25 mg tablet 25 mg PO Q OTHER DAY 11/05/19 08/08/22 potassium chloride 10 mEq 10 meq PO QAM 11/05/19 08/08/22 capsule,extended release apixaban 5 mg tablet (Eliquis) 5 mg PO BID 03/17/22 08/08/22 baclofen 10 mg tablet 10 mg PO TID 03/17/22 08/08/22 furosemide 20 mg tablet (Lasix) 20 mg PO QAM 03/17/22 08/08/22 multivitamin 1 tab PO QAM 03/17/22 08/08/22 sertraline 50 mg tablet (Zoloft) 50 mg PO HS 03/17/22 08/08/22 olmesartan 20 mg tablet 20 mg PO DAILY 08/08/22 08/08/22 Results & Data (ED) Vital Signs Vital Signs - 24 hr 08/08/22 13:36 08/08/22 14:17 08/08/22 14:17 Temperature 36.4 C L Temperature Source Temporal Artery Scan Pulse Rate 86 Pulse Rate [Apical] 82 Pulse Rhythm [Apical] Respiratory Rate 20 16 Respiratory Effort / Characteristics Non-Labored Respiratory Depth Normal Blood Pressure 80/47 L Blood Pressure [Right Arm] 93/46 L Blood Pressure Mean 58 Blood Pressure Mean [Right Arm] 61 Pulse Oximetry 94 99 99 Oxygen Delivery Method Room Air Room Air Room Air Sepsis Recent Fever Within 48 Hours No Sepsis New/Unexplained Change in Mental Status N/A Sepsis Action Taken by Nursing No Action Required 08/08/22 14:45 Temperature Temperature Source Pulse Rate Pulse Rate [Apical] 79 Pulse Rhythm [Apical] Regular Respiratory Rate 16 Respiratory Effort / Characteristics Non-Labored Respiratory Depth Normal Blood Pressure Blood Pressure [Right Arm] 112/48 L Blood Pressure Mean Blood Pressure Mean [Right Arm] 69 Pulse Oximetry 99 Oxygen Delivery Method Room Air Sepsis Recent Fever Within 48 Hours Sepsis New/Unexplained Change in Mental Status Sepsis Action Taken by Nursing Laboratory Data 08/08/22 13:55 08/08/22 13:55 Lab Results 08/08/22 08/08/22 08/08/22 Range/Units 13:55 13:55 13:55 WBC 10.93 H (4.8-10.8) K/ul RBC 2.49 L (4.70-6.10) M/uL Hgb 7.9 L (14.0-18.0) g/dl Hct 23.6 L (42.0-52.0) % MCV 94.8 (80.0-100.0) fL MCH 31.7 (25.0-34.0) pg MCHC 33.5 (32.0-36.0) g/dL RDW Std Deviation 45.1 (36.4-46.3) fL RDW Coeff of Qian 13.2 (11.5-14.5) % Plt Count 329 (130-400) K/uL MPV 9.5 (9.4-12.4) fL Immature Gran % (Auto) 0.7 % Neut % (Auto) 85.6 % Lymph % (Auto) 7.9 % [place] % (Auto) 5.0 % Eos % (Auto) 0.5 % Baso % (Auto) 0.3 % Neut # (Auto) 9.36 H (1.40-6.50) K/uL Lymph # (Auto) 0.86 L (1.2-3.4) K/uL [place] # (Auto) 0.55 (0.11-0.59) K/uL Eos # (Auto) 0.05 (0-0.50) K/uL Baso # (Auto) 0.03 (0-0.2) K/uL Immature Gran # (Auto) 0.08 (0.01-0.20) K/uL RBC Morphology Unremarkable PT 11.6 (9.0-12.0) Seconds INR 1.1 (0.9-1.1) APTT 27.1 (21.0-31.0) Seconds PTT Ratio 1.0 Sodium 137 (136-145) mmol/L Potassium 4.6 (3.5-5.1) mmol/L Chloride 106 (98-107) mmol/L Carbon Dioxide 24 (21-32) mmol/L Anion Gap 7 (3-11) BUN 55 H (6-23) mg/dl Creatinine 1.41 H (0.6-1.4) mg/dl Est Cr Clr Drug Dosing Not Reportable Est GFR ( Amer) 54.1 ml/min Est GFR (Non-Af Amer) 46.7 ml/min BUN/Creatinine Ratio 39.0 H (10-20) Glucose 110 H (70-99(Fasting)) mg/dl Calcium 9.0 (8.5-10.1) mg/dl Total Bilirubin 0.5 (0.2-1.0) mg/dl AST 15 (13-39) U/L ALT 10 (7-52) U/L Alkaline Phosphatase 65 (34-104) U/L Troponin I High Sens 8.2 (0-20) pg/ml Total Protein 6.1 (6.0-8.3) gm/dl Albumin 3.6 (3.4-5.0) gm/dl Globulin 2.5 (2.5-4.0) gm/dl Albumin/Globulin Ratio 1.4 (0.9-2) Blood Type Antibody Screen Crossmatch 08/08/22 Range/Units 14:26 WBC (4.8-10.8) K/ul RBC (4.70-6.10) M/uL Hgb (14.0-18.0) g/dl Hct (42.0-52.0) % MCV (80.0-100.0) fL MCH (25.0-34.0) pg MCHC (32.0-36.0) g/dL RDW Std Deviation (36.4-46.3) fL RDW Coeff of Qian (11.5-14.5) % Plt Count (130-400) K/uL MPV (9.4-12.4) fL Immature Gran % (Auto) % Neut % (Auto) % Lymph % (Auto) % [place] % (Auto) % Eos % (Auto) % Baso % (Auto) % Neut # (Auto) (1.40-6.50) K/uL Lymph # (Auto) (1.2-3.4) K/uL [place] # (Auto) (0.11-0.59) K/uL Eos # (Auto) (0-0.50) K/uL Baso # (Auto) (0-0.2) K/uL Immature Gran # (Auto) (0.01-0.20) K/uL RBC Morphology PT (9.0-12.0) Seconds INR (0.9-1.1) APTT (21.0-31.0) Seconds PTT Ratio Sodium (136-145) mmol/L Potassium (3.5-5.1) mmol/L Chloride (98-107) mmol/L Carbon Dioxide (21-32) mmol/L Anion Gap (3-11) BUN (6-23) mg/dl Creatinine (0.6-1.4) mg/dl Est Cr Clr Drug Dosing Est GFR ( Amer) ml/min Est GFR (Non-Af Amer) ml/min BUN/Creatinine Ratio (10-20) Glucose (70-99(Fasting)) mg/dl Calcium (8.5-10.1) mg/dl Total Bilirubin (0.2-1.0) mg/dl AST (13-39) U/L ALT (7-52) U/L Alkaline Phosphatase (34-104) U/L Troponin I High Sens (0-20) pg/ml Total Protein (6.0-8.3) gm/dl Albumin (3.4-5.0) gm/dl Globulin (2.5-4.0) gm/dl Albumin/Globulin Ratio (0.9-2) Blood Type O Positive Antibody Screen NEGATIVE Crossmatch See Detail Administered Medications Discontinued Medications Pantoprazole Sodium 80 mg/ (Dextrose) 120 mls @ 400 mls/hr IV NOW STA Stop: 08/08/22 14:13 Last Infusion: 08/08/22 15:02 Dose: 0 mls/hr Documented By: Admin: 08/08/22 14:44 Dose: 400 mls/hr Documented By: SRIRAM Sodium Chloride (Nss 1000ml) 1,000 mls @ 999 mls/hr IV .Q1H1M ONE Stop: 08/08/22 15:00 Last Infusion: 08/08/22 15:14 Dose: 0 mls/hr Documented By: Admin: 08/08/22 14:13 Dose: 999 mls/hr Documented By: SRIRAM Imaging Data Radiologist's Impression: Chest X-Ray 08/08/22 13:56 XR chest 1V portable HISTORY: GI bleed. COMPARISON: Chest 03/22/2022 FINDINGS: There are low lung volumes. No pneumothorax. No pleural effusions. No new focal lung consolidations to suggest a pneumonia. No evidence for pulmonary edema. The heart is mildly enlarged. This remains unchanged. There is a left- sided dual-chamber pacemaker again noted. A few left basilar linear densities favor subsegmental atelectasis or scarring. This is similar to the prior study. IMPRESSION: No significant change compared to the prior study. No acute process. ACT 112: Negative or not required by law. Electronically signed by: Brannon Nielsen M.D. 08/08/2022 2:21 PM Discharge Plan Visit Data Chief Complaint: Illness Stated Complaint: BLACK STOOLS AND LIGHTHEADED S/P HIP SURGERY ED Provider: Caesar Rothman Discharge Problem: GI bleed, Symptomatic anemia Patient Disposition: Admitted As Inpatient Discharge Instructions Interventions: ED Discharge Assessment Last Done: 08/08/22 16:31
[2022-08-08 14:21] LABS: Basophils # (auto) 0.03 K/uL (0-0.2); Basophils % (auto) 0.3 %; Eosinophils # (auto) 0.05 K/uL (0-0.50); Eosinophils % (auto) 0.5 %; Hematocrit (blood only) 23.6 % (42.0-52.0); Hemoglobin 7.9 g/dl (14.0-18.0); Immature Granulocytes # (auto) 0.08 K/uL (0.01-0.20); Immature Granulocytes % (auto) 0.7 %; Lymphocytes # (auto) 0.86 K/uL (1.2-3.4); Lymphocytes % (auto) 7.9 %; Mean Corpuscular Hemoglobin 31.7 pg (25.0-34.0); Mean Corpuscular Hgb Conc 33.5 g/dL (32.0-36.0); Mean Corpuscular Volume 94.8 fL (80.0-100.0); Mean Platelet Volume 9.5 fL (9.4-12.4); Monocytes # (auto) 0.55 K/uL (0.11-0.59); Neutrophils # (auto) 9.36 K/uL (1.40-6.50); Neutrophils % (auto) 85.6 %; Platelet Count 329 K/uL (130-400); RDW Coefficient of Variation 13.2 % (11.5-14.5); RDW Standard Deviation 45.1 fL (36.4-46.3); Red Blood Count 2.49 M/uL (4.70-6.10); White Blood Count 10.93 K/ul (4.8-10.8)
--- NOTE | 2022-08-08 14:23 | XRay Report ---
XR chest 1V portable HISTORY: GI bleed. COMPARISON: Chest 03/22/2022 FINDINGS: There are low lung volumes. No pneumothorax. No pleural effusions. No new focal lung consol idations to suggest a pneumonia. No evidence for pulmonary edema. The heart is mildly enlarged. This remains unchanged. There is a left-sided dual-chamber pacemaker again noted. A few left basilar linea r densities favor subsegmental atelectasis or scarring. This is similar to the prior study. IMPRESSION: No significant change compared to the prior study. No acute process. ACT 112: Negative or not required by law. Electronically signed by: Brannon Nielsen M.D. 08/08/2022 2:21 PM
[2022-08-08 14:34] LABS: Alanine Aminotransferase 10 U/L (7-52); Albumin Globulin Ratio 1.4 (0.9-2); Albumin Level 3.6 gm/dl (3.4-5.0); Alkaline Phosphatase 65 U/L (34-104); Anion Gap 7 (3-11); Aspartate Aminotransferase 15 U/L (13-39); Bilirubin,Total 0.5 mg/dl (0.2-1.0); Blood Urea Nitrogen 55 mg/dl (6-23); Carbon Dioxide 24 mmol/L (21-32); Chloride 106 mmol/L (98-107); Est GFR (African American) 54.1 ml/min; Est GFR (Non-African American) 46.7 ml/min; Globulin 2.5 gm/dl (2.5-4.0); Glucose 110 mg/dl (70-99(Fasting)); Potassium 4.6 mmol/L (3.5-5.1); Sodium 137 mmol/L (136-145); Total Protein 6.1 gm/dl (6.0-8.3)
[2022-08-08 14:39] LABS: Troponin I High Sensitivity 8.2 pg/ml (0-20)
[2022-08-08 14:42] LABS: RBC Morphology Unremarkable
[2022-08-08 14:53] LABS: INR 1.1 (0.9-1.1); Partial Thromboplastin Time 27.1 Seconds (21.0-31.0); Prothrombin Time 11.6 Seconds (9.0-12.0)
--- NOTE | 2022-08-08 15:14 | History & Physical Report ---
Date of Service August 08, 2022 Assessment & Plan (1) GI bleed: Plan: Tyler is an 81-year-old male with a past medical history of hip replacement 07/2022 on Eliquis who has felt fatigued for several days and for the last 2 days he has had black tarry stools with each bowel movement. Has been lightheaded, has been without chest pain or dyspnea. Preoperative hemoglobin 11.3 has down trended to 7.9. His baseline creatinine is around 1.31.55, admitting creatinine is 1.41. BUN is acutely elevated to 55. Chest x-ray is without acute findings. EKG shows AsV paced rhythm with a QTc of 488. High-sensitivity troponin is normal. Acute GI bleed in the setting of Eliquis use Patient denies any history of GERD, epigastric pain, epigastric tenderness. Did have a left hip replacement and has been on postoperative Eliquis Prior to his left hip replacement he was on Eliquis from March until July for a right lower extremity DVT which delayed his original surgery date. Patient was on Eliquis up to 3 days before his surgery, resumed half dose Eliquis postoperatively and then full dose Eliquis 72 hours postoperatively Melena, fatigue, lightheadedness, dizziness, presyncope began 3 days ago Last hemoglobin 11.3, hemoglobin on admission 7.9 Patient has had 3 episodes of bleeding over the last 72 hours, suspect 7.9 may overestimate true levels as patient has not reconstituted. 2 units of blood ordered by ER for symptomatic anemia. Repeat H&H after first unit, and then after second if still required and every 6 hours thereafter Patient does not have epigastric pain/GERD by history, and does not have a tender epigastrium on palpation but has had black melanic stools. We will treat with PPI, GI following for endoscopy Transfuse to hemoglobin less than 7, or symptomatic anemia. Eliquis held Aspirin held N.p.o. Received 1 L NSS in ER with improvement of pressures from 80/47-112/48 Last EF 50% on chart review will hold additional fluids while receiving blood, and then can resume LR 100 cc/h if stable and while n.p.o. GI consulted (2) DVT (deep venous thrombosis): Plan: Noted in March 2022, has been on Eliquis (3) Pacemaker: Plan: Placed for symptomatic bradycardia, no issues or arrhythmia since. No chest pain on admission. EKG with paced rhythm. Troponin is normal on a dmission No acute change in management at this time (4) CKD (chronic kidney disease): Plan: Creatinine baseline appears 1.331.55, admitting creatinine 1.41 Received fluids, blood as noted Trend BMP daily renally dose medications as needed (5) Status post total hip replacement, left: Plan: Left hip surgical incision well-healing without dehiscence. Small hematoma was noted on prior preop eval, however there is no expanding hematoma, firmness, or signs of large-volume bleeding contributing to his symptomatic anemia Patient is on bedrest due to lightheadedness/dizziness while anemic. Postoperative Eliquis which was also continued in the setting of a prior DVT have been held in the setting of acute bleeding (6) Hypertension: Plan: Hypotensive due to anemia. Hold chlorthalidone, Lasix, olmesartan for hypotension. Plan DVT prophylaxis: Pharmacal prophylaxis contraindicated in the setting of acute bleeding Diet: N.p.o. Disposition: PCU for acute symptomatic anemia due to GI bleed CODE STATUS: Full code History of Present Illness Primary Care Provider: Magen Acosta DO Tyler is an 81-year-old male with a past medical history of hip replacement 07/2022 on Eliquis who has felt fatigued for several days and for the last 2 days he has had black tarry stools with each bowel movement. Has been lightheaded, has been without chest pain or dyspnea. Preoperative hemoglobin 11.3 has down trended to 7.9. His baseline creatinine is around 1.31.55, admitting creatinine is 1.41. BUN is acutely elevated to 55. Chest x-ray is without acute findings. EKG shows AsV paced rhythm with a QTc of 488. High-sensitivity troponin is normal. Past medical history of hypertension, BPH with LUTS, hyperlipidemia, past hyperglycemia. Reports was doing well until of this last week after a hip replacement. At Tuesday morning while at [facility] rehab had black bowel movement fo rthe first time. Sat and today continued to have black bowel movements and he became lightheaded. Last BM was this morning. Stool was dark/black with blood and red color to the toilet water before flushing. First symptoms were 3 days ago, and maybe had a small amount of lightheadedness prior to that. No prior history of GI bleeding Had a colonoscopy ~10-12 years ago and [facility] which was normal and OK for 10 year followup. No abdominal pain. No acid reflux. No epigastric pain. Has been burping more lately, but no indigestion. He has not been nauseous and has not vomited. He has no chest pain, chest pressure, difficulty breathing, orthopnea but does have easily fatigue and lightheadedness on standing and has felt presyncopal in the last 3 days as noted. Reports his left arm is at baseline weaker than his right arm, but this has not changed and denies any focal weakness in any numbness/tingling/sensory change EF55% No heart attacks. Had a pacer for symptomatic bradycardia. Had wire replacement Dec last year, otherwise no problems. Was originally placed by Dr. Summers and now follows with [facility] No lung problems Takes baby aspirin 81mg daily for primary prention of OK. No history of stents. Took eliquis this morning ~9am. Medical History: Reviewed Medications: Reviewed Surgical History: Reviewed Family history: Reviewed Allergies: Reviewed. NKDA Social History: Former , no recent tobacco use Code Status: Full code Allergies Allergy/AdvReac Type Severity Reaction Status Date / Time Iodinated Contrast Media Allergy Mild Shakiness Verified 08/08/22 15:54 Home Medications Medication Instructions Recorded Confirmed Type aspirin 81 mg tablet,delayed 81 mg PO QAM 11/05/19 08/08/22 History release chlorthalidone 25 mg tablet 25 mg PO Q OTHER DAY 11/05/19 08/08/22 History potassium chloride 10 mEq 10 meq PO QAM 11/05/19 08/08/22 History capsule,extended release apixaban 5 mg tablet (Eliquis) 5 mg PO BID 03/17/22 08/08/22 History baclofen 10 mg tablet 10 mg PO TID 03/17/22 08/08/22 History furosemide 20 mg tablet (Lasix) 20 mg PO QAM 03/17/22 08/08/22 History multivitamin 1 tab PO QAM 03/17/22 08/08/22 History sertraline 50 mg tablet (Zoloft) 50 mg PO HS 03/17/22 08/08/22 History olmesartan 20 mg tablet 20 mg PO DAILY 08/08/22 08/08/22 History Past Med/Surg History Medical History (Updated 08/08/22 @ 16:02 by Aiden Tejada MD) 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 [facility] Card[facility]/Dr. [facility]. Vertigo stable per pt Surgical History (Updated 07/22/22 @ 10:26 by Jonathan Chandler PA-C) History of carpal tunnel surgery of left wrist History of carpal tunnel surgery of right wrist History of colonoscopy History of nasal surgery History of tonsillectomy S/P cardiac pacemaker procedure Family History Uncle Diabetes Father Colon cancer Other No family history of adverse response to anesthesia Social History Smoking Status: Never smoker Second Hand Exposure: No; Hx Alcohol Use: Yes Alcohol type: beer Hx Substance Use: No Preferred Language: Tanzanian Communication Ability: Effective Assembler Bonding Required: No Beliefs That Will Affect Care: None Current Living Situation: Spouse Feels Safe at Home: Yes Assistive Devices: Walker Review of Systems Review of Systems: All systems reviewed & are unremarkable except as noted in HPI & below Physical Exam Physical Exam: General: A&Ox3. NAD. Cooperative. Slight pallor underlying the eyelids HEENT: Atraumatic, normocephalic. Vision and hearing intact. Pupils equal and reactive to light Pulm: CTAB A&P. -wheezes, -rales, -rhonchi. Symmetrical chest rise. No increased work of breathing. No respiratory distress. Cardiac: RRR, -mrg. Radial pulses intact and symmetrical. Abdominal: Nontender, nondistended, soft. BS present. Ext; left post hip replacement sutures well-healing, no dehiscence/active bleeding/expanding hematoma or firmness. Sensation soft touch intact in ankles bilaterally, intact dorsiflexion/plantarflexion 5/5 bilaterally. PT pulse intact bilaterally. Reel Assembler strength 5/5, elbow flexion 5/5 bilaterally. Results & Data Results & Data Vital Signs (Past 12 Hours) Vital Signs Temp Pulse Pulse Resp BP BP Pulse Ox 08/08/22 14:45 79 16 112/48 L 99 08/08/22 14:17 99 08/08/22 14:17 82 16 93/46 L 99 08/08/22 13:36 36.4 C L 86 20 80/47 L 94 O2 Del Method 08/08/22 14:45 Room Air 08/08/22 14:17 Room Air 08/08/22 14:17 Room Air 08/08/22 13:36 Room Air PG Care Time/CCT Total # of Minutes Spent Total Time Spent with Patient: Total time spent is greater than 50% in coordination of care (as documented) at patient's floor/unit and/or counseling patient: Coding Level of Care Code 32057 INT INP/OBS CARE 3/75MIN Diagnoses GI bleed K92.2 DVT (deep venous thrombosis) I82.409 Pacemaker Z95.0 CKD (chronic kidney disease) N18.9 Status post total hip replacement, left Z96.642 Hypertension I10
[2022-08-08] MEDS ORDERED: ACETAMINOPHEN 325 MG TAB PO PRN (17:07)
[2022-08-08 21:55] LABS: Hematocrit (blood only) 24.2 % (42.0-52.0); Hemoglobin 8.1 g/dl (14.0-18.0)
[2022-08-09] MEDS: LACTATED RINGER'S 1,000 ML IV SCH ×2 (01:10→16:14)
[2022-08-09 02:28] LABS: Basophils # (auto) 0.03 K/uL (0-0.2); Basophils % (auto) 0.4 %; Eosinophils % (auto) 2.4 %; Hematocrit (blood only) 23.8 % (42.0-52.0); Hemoglobin 8.1 g/dl (14.0-18.0); Immature Granulocytes # (auto) 0.05 K/uL (0.01-0.20); Immature Granulocytes % (auto) 0.6 %; Lymphocytes # (auto) 1.78 K/uL (1.2-3.4); Lymphocytes % (auto) 21.5 %; Mean Corpuscular Hemoglobin 31.5 pg (25.0-34.0); Mean Corpuscular Volume 92.6 fL (80.0-100.0); Mean Platelet Volume 9.3 fL (9.4-12.4); Monocytes # (auto) 0.63 K/uL (0.11-0.59); Monocytes % (auto) 7.6 %; Neutrophils # (auto) 5.57 K/uL (1.40-6.50); Neutrophils % (auto) 67.5 %; Platelet Count 252 K/uL (130-400); RDW Coefficient of Variation 13.8 % (11.5-14.5); RDW Standard Deviation 46.4 fL (36.4-46.3); Red Blood Count 2.57 M/uL (4.70-6.10); White Blood Count 8.26 K/ul (4.8-10.8)
[2022-08-09 02:41] LABS: BUN Creatinine Ratio 40.8 (10-20); Est GFR (African American) 65.8 ml/min; Est GFR (Non-African American) 56.8 ml/min
[2022-08-09 06:52] LABS: Hematocrit (blood only) 22.9 % (42.0-52.0); Hemoglobin 7.8 g/dl (14.0-18.0)
[2022-08-09] MEDS ORDERED: PANTOPRAZOLE BOLUS/DRIP 1 EACH IV STA (09:29)
[2022-08-09] MEDS ORDERED: PANTOprazole 80 MG in DEXTROSE 5% 100 ML IV ONE (09:29)
--- NOTE | 2022-08-09 09:30 | Orthopedic Progress Note ---
Date of Service August 09, 2022 Assessment & Plan (1) Status post total hip replacement, left: Plan: Surgery was performed on July 21, [address] Tobias Would recommend Physical therapy when able to be out of bed. Needs to abide by posterior hip precautions of his left hip at all times. Recommended sleeping with pillow between knees. SHLOMO stockings on both lower extremities, on during the day and off at night for comfort. Exercises that he can perform in bed were discussed and reviewed. He can do quad sets, straight leg raises, knee flexion, abduction, gluteal squeezes, ankle pumps as tolerated. Weight-bear as tolerated left lower extremity with the assistance of a walker. He does have outpatient physical therapy scheduled for Tuesday and Tuesday this week in our office. Depending on his length of stay we will cancel appropriate therapy appointments. Follow-up with Dr. Tobias as scheduled. Admission and Anticipated Discharge Date Admission Date: August 08, 2022 Subjective Patient doing well. Resting in bed. He was admitted yesterday with a GI bleed. He is on chronic Eliquis which has been stopped. States that he noticed blood in his stool yesterday. He has been lightheaded which had progressively worsened over the last couple of days. He underwent a left total hip arthroplasty by Dr. Tobias on July 21, 2022. His hip has been doing fine. His олег were removed last week. Denies any fevers or chills. Physical Exam Musculoskeletal: Left hip incision: Healed. Clean and dry. Intact. Reinforced with Steri- Strips. Some of his Steri-Strips were crawled up today and they were removed. No underlying seroma or hematoma. Hip incision is nontender. No significant edema in his left lower extremity. No calf discomfort with palpation. Dorsalis pedis and posterior tibial pulses are 1+. Left leg strength is 5/5. He tolerates flexion of his left hip about 85 degrees. Tolerates gentle abduction. Tolerates logrolling of his left with hip without discomfort. No knee effusion. Knee flexion as tolerated comfortably. Able to independently straight leg raise. Results & Data Vital Signs (Past 12 Hours) Vital Signs Temp Pulse Pulse Resp BP BP Pulse Ox 08/09/22 07:46 37.0 C 84 18 120/72 97 08/09/22 03:00 36.6 C 75 16 94/58 L 94 08/08/22 22:58 36.8 C 74 18 119/73 94 08/09/22 00:46 36.6 C 76 18 100/57 L 97 08/08/22 23:34 36.8 C 72 16 113/59 L 92 08/08/22 23:01 71 08/08/22 22:54 36.8 C 74 18 121/60 94 08/08/22 22:39 36.9 C 74 18 104/55 L 94 08/08/22 22:37 36.9 C 74 18 104/55 L 94 O2 Del Method O2 Flow Rate 08/09/22 07:46 Nasal Cannula 2.0 08/09/22 03:00 Room Air 08/08/22 22:58 08/09/22 00:46 Room Air 08/08/22 23:34 Room Air 08/08/22 23:01 08/08/22 22:54 Room Air 08/08/22 22:39 08/08/22 22:37 Room Air Laboratory Results 08/09/22 08/09/22 08/09/22 Range/Units 05:29 02:06 02:06 WBC 8.26 (4.8-10.8) K/ul RBC 2.57 L (4.70-6.10) M/uL Hgb 7.8 L 8.1 L (14.0-18.0) g/dl Hct 22.9 L 23.8 L (42.0-52.0) % MCV 92.6 (80.0-100.0) fL MCH 31.5 (25.0-34.0) pg MCHC 34.0 (32.0-36.0) g/dL RDW Std Deviation 46.4 H (36.4-46.3) fL RDW Coeff of Qian 13.8 (11.5-14.5) % Plt Count 252 (130-400) K/uL MPV 9.3 L (9.4-12.4) fL Immature Gran % (Auto) 0.6 % Neut % (Auto) 67.5 % Lymph % (Auto) 21.5 % Mclean % (Auto) 7.6 % Eos % (Auto) 2.4 % Baso % (Auto) 0.4 % Neut # (Auto) 5.57 (1.40-6.50) K/uL Lymph # (Auto) 1.78 (1.2-3.4) K/uL Mclean # (Auto) 0.63 H (0.11-0.59) K/uL Eos # (Auto) 0.20 (0-0.50) K/uL Baso # (Auto) 0.03 (0-0.2) K/uL Immature Gran # (Auto) 0.05 (0.01-0.20) K/uL RBC Morphology PT (9.0-12.0) Seconds INR (0.9-1.1) APTT (21.0-31.0) Seconds PTT Ratio Sodium 138 (136-145) mmol/L Potassium 4.0 (3.5-5.1) mmol/L Chloride 109 H (98-107) mmol/L Carbon Dioxide 24 (21-32) mmol/L Anion Gap 5 (3-11) BUN 49 H (6-23) mg/dl Creatinine 1.20 (0.6-1.4) mg/dl Est Cr Clr Drug Dosing 53.0 Est GFR ( Amer) 65.8 ml/min Est GFR (Non-Af Amer) 56.8 ml/min BUN/Creatinine Ratio 40.8 H (10-20) Glucose 100 H (70-99(Fasting)) mg/dl Calcium 8.0 L (8.5-10.1) mg/dl Total Bilirubin (0.2-1.0) mg/dl AST (13-39) U/L ALT (7-52) U/L Alkaline Phosphatase (34-104) U/L Troponin I High Sens (0-20) pg/ml Total Protein (6.0-8.3) gm/dl Albumin (3.4-5.0) gm/dl Globulin (2.5-4.0) gm/dl Albumin/Globulin Ratio (0.9-2) SARS-CoV-2, RNA, NAAT (NEGATIVE) Blood Type Antibody Screen Crossmatch 08/08/22 08/08/22 08/08/22 Range/Units Unknown 21:37 14:26 WBC (4.8-10.8) K/ul RBC (4.70-6.10) M/uL Hgb 8.1 L (14.0-18.0) g/dl Hct 24.2 L (42.0-52.0) % MCV (80.0-100.0) fL MCH (25.0-34.0) pg MCHC (32.0-36.0) g/dL RDW Std Deviation (36.4-46.3) fL RDW Coeff of Qian (11.5-14.5) % Plt Count (130-400) K/uL MPV (9.4-12.4) fL Immature Gran % (Auto) % Neut % (Auto) % Lymph % (Auto) % Mclean % (Auto) % Eos % (Auto) % Baso % (Auto) % Neut # (Auto) (1.40-6.50) K/uL Lymph # (Auto) (1.2-3.4) K/uL Mclean # (Auto) (0.11-0.59) K/uL Eos # (Auto) (0-0.50) K/uL Baso # (Auto) (0-0.2) K/uL Immature Gran # (Auto) (0.01-0.20) K/uL RBC Morphology PT (9.0-12.0) Seconds INR (0.9-1.1) APTT (21.0-31.0) Seconds PTT Ratio Sodium (136-145) mmol/L Potassium (3.5-5.1) mmol/L Chloride (98-107) mmol/L Carbon Dioxide (21-32) mmol/L Anion Gap (3-11) BUN (6-23) mg/dl Creatinine (0.6-1.4) mg/dl Est Cr Clr Drug Dosing Est GFR ( Amer) ml/min Est GFR (Non-Af Amer) ml/min BUN/Creatinine Ratio (10-20) Glucose (70-99(Fasting)) mg/dl Calcium (8.5-10.1) mg/dl Total Bilirubin (0.2-1.0) mg/dl AST (13-39) U/L ALT (7-52) U/L Alkaline Phosphatase (34-104) U/L Troponin I High Sens (0-20) pg/ml Total Protein (6.0-8.3) gm/dl Albumin (3.4-5.0) gm/dl Globulin (2.5-4.0) gm/dl Albumin/Globulin Ratio (0.9-2) SARS-CoV-2, RNA, NAAT NEGATIVE (NEGATIVE) Blood Type O Positive Antibody Screen NEGATIVE Crossmatch See Detail 08/08/22 08/08/22 08/08/22 Range/Units 13:55 13:55 13:55 WBC 10.93 H (4.8-10.8) K/ul RBC 2.49 L (4.70-6.10) M/uL Hgb 7.9 L (14.0-18.0) g/dl Hct 23.6 L (42.0-52.0) % MCV 94.8 (80.0-100.0) fL MCH 31.7 (25.0-34.0) pg MCHC 33.5 (32.0-36.0) g/dL RDW Std Deviation 45.1 (36.4-46.3) fL RDW Coeff of Qian 13.2 (11.5-14.5) % Plt Count 329 (130-400) K/uL MPV 9.5 (9.4-12.4) fL Immature Gran % (Auto) 0.7 % Neut % (Auto) 85.6 % Lymph % (Auto) 7.9 % Mclean % (Auto) 5.0 % Eos % (Auto) 0.5 % Baso % (Auto) 0.3 % Neut # (Auto) 9.36 H (1.40-6.50) K/uL Lymph # (Auto) 0.86 L (1.2-3.4) K/uL Mclean # (Auto) 0.55 (0.11-0.59) K/uL Eos # (Auto) 0.05 (0-0.50) K/uL Baso # (Auto) 0.03 (0-0.2) K/uL Immature Gran # (Auto) 0.08 (0.01-0.20) K/uL RBC Morphology Unremarkable PT 11.6 (9.0-12.0) Seconds INR 1.1 (0.9-1.1) APTT 27.1 (21.0-31.0) Seconds PTT Ratio 1.0 Sodium 137 (136-145) mmol/L Potassium 4.6 (3.5-5.1) mmol/L Chloride 106 (98-107) mmol/L Carbon Dioxide 24 (21-32) mmol/L Anion Gap 7 (3-11) BUN 55 H (6-23) mg/dl Creatinine 1.41 H (0.6-1.4) mg/dl Est Cr Clr Drug Dosing Not Reportable Est GFR ( Amer) 54.1 ml/min Est GFR (Non-Af Amer) 46.7 ml/min BUN/Creatinine Ratio 39.0 H (10-20) Glucose 110 H (70-99(Fasting)) mg/dl Calcium 9.0 (8.5-10.1) mg/dl Total Bilirubin 0.5 (0.2-1.0) mg/dl AST 15 (13-39) U/L ALT 10 (7-52) U/L Alkaline Phosphatase 65 (34-104) U/L Troponin I High Sens 8.2 (0-20) pg/ml Total Protein 6.1 (6.0-8.3) gm/dl Albumin 3.6 (3.4-5.0) gm/dl Globulin 2.5 (2.5-4.0) gm/dl Albumin/Globulin Ratio 1.4 (0.9-2) SARS-CoV-2, RNA, NAAT (NEGATIVE) Blood Type Antibody Screen Crossmatch
--- NOTE | 2022-08-09 10:21 | Gastrointestinal Consultation ---
Date of Consultation August 09, 2022 Assessment & Plan (1) Symptomatic anemia: (2) GI bleed: Plan Patient is a 81 y.o. male with a history of left HUANG on 07/21 admitted with symptomatic, acute blood loss anemia and melena/bright red rectal bleeding. Diff dx: AVM vs PUD vs other. -NPO for now. -EGD with Dr. Mcclain for further evaluation. -Continue PPI ggt at 8 mg/hr. -Supportive care per primary team. -Further reccs pending results of testing. Thank you for allowing us to participate in the care of this patient. If you have any questions or concerns, please do not hesitate to contact us. Supervising Physician Co-Signing Physician Notes Agree with SARI Ruano as above Abd: Soft, NT, ND, +BS Continue current therapy and supportive care Patient given IV Reglan 10 mg prior to EGD Proceed with EGD now secondary to acute blood loss anemia, requiring transfusion, and Melena. History of Present Illness Reason for Consultation: GIB Requesting Physician: Dr. Tejada Attending Physician: Jonh Ballesteros History of Present Illness Patient is a very pleasant 81 y.o. male with a history of left HUANG performed by Dr. Tobias on 07/21/22 admitted with symptomatic acute blood loss anemia. He reports he was doing well postoperatively until Tuesday, 08/07. At that time, he developed a sudden onset of melena and bright red rectal bleeding. Symptoms were associated with dizziness upon standing and significant fatigue. Did have a dark and bright red bowel movement this morning. H&H on 07/22 was noted to be 11.3/33.0 but has since dropped to 7.8/22.9 today. BUN today is 55. He denies any associated abdominal pain, nausea or vomiting or fevers. His Eliquis and ASA have been held and he is NPO. PPI ggt was started this morning by Dr. Ballesteros. Last colonoscopy was reportedly 12 yrs ago performed by Dr. Guajardo in [place]. Allergies Allergy/AdvReac Type Severity Reaction Status Date / Time Iodinated Contrast Media Allergy Mild Shakiness Verified 08/09/22 13:00 Home Medications Medication Instructions Recorded Confirmed Type aspirin 81 mg tablet,delayed 81 mg PO QAM 11/05/19 08/08/22 History release chlorthalidone 25 mg tablet 25 mg PO Q OTHER DAY 11/05/19 08/08/22 History potassium chloride 10 mEq 10 meq PO QAM 11/05/19 08/08/22 History capsule,extended release apixaban 5 mg tablet (Eliquis) 5 mg PO BID 03/17/22 08/08/22 History baclofen 10 mg tablet 10 mg PO TID 03/17/22 08/08/22 History furosemide 20 mg tablet (Lasix) 20 mg PO QAM 03/17/22 08/08/22 History multivitamin 1 tab PO QAM 03/17/22 08/08/22 History sertraline 50 mg tablet (Zoloft) 50 mg PO HS 03/17/22 08/08/22 History olmesartan 20 mg tablet 20 mg PO DAILY 08/08/22 08/08/22 History Patient History Medical History (Updated 08/09/22 @ 11:36 by Chung Hill MD) 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 [facility] Cardiology/Dr. Corado. Symptomatic anemia Vertigo stable per pt Surgical History History of carpal tunnel surgery of left wrist History of carpal tunnel surgery of right wrist History of colonoscopy History of nasal surgery History of tonsillectomy S/P cardiac pacemaker procedure Family History Uncle Diabetes Father Colon cancer Other No family history of adverse response to anesthesia Social History Smoking Status: Never smoker Second Hand Exposure: No; Hx Alcohol Use: Yes Alcohol type: beer Hx Substance Use: No Preferred Language: [place] Communication Ability: Effective Rn X Ray Required: No Beliefs That Will Affect Care: None Current Living Situation: Spouse Other Information That Helps Us Care for You: No Feels Safe at Home: Yes Assistive Devices: Cane, Denture - Upper, Glasses and Walker Review of Systems Review of Systems: All systems reviewed & are unremarkable except as noted in HPI & below Physical Exam Constitutional: WD/WN, vitals as above Eyes: EOM intact bilaterally Respiratory: normal respiratory effort, lungs clear to auscultation Cardiovascular: Rate/Rhythm: regular rate and regular rhythm Heart Sounds: + murmur Gastrointestinal (Abdomen): Inspection/Auscultation: abdomen normal to inspection and + hyperactive bowel sounds Percussion/Palpation: abdomen soft; abdomen nontender Skin: + pallor Psychiatric: A+Ox3, euthymic affect Results & Data Vital Signs (Past 12 Hours) Vital Signs Temp Pulse Pulse Resp BP BP Pulse Ox 08/09/22 07:46 37.0 C 84 18 120/72 97 08/09/22 03:00 36.6 C 75 16 94/58 L 94 08/08/22 22:58 36.8 C 74 18 119/73 94 08/09/22 00:46 36.6 C 76 18 100/57 L 97 08/08/22 23:34 36.8 C 72 16 113/59 L 92 08/08/22 23:01 71 08/08/22 22:54 36.8 C 74 18 121/60 94 08/08/22 22:39 36.9 C 74 18 104/55 L 94 08/08/22 22:37 36.9 C 74 18 104/55 L 94 O2 Del Method O2 Flow Rate 08/09/22 07:46 Nasal Cannula 2.0 08/09/22 03:00 Room Air 08/08/22 22:58 08/09/22 00:46 Room Air 08/08/22 23:34 Room Air 08/08/22 23:01 08/08/22 22:54 Room Air 08/08/22 22:39 08/08/22 22:37 Room Air Diagnostic Findings Laboratory Results WBC 8.26 K/ul (4.8-10.8) 08/09/22 02:06 RBC 2.57 M/uL (4.70-6.10) L 08/09/22 02:06 Hgb 7.8 g/dl (14.0-18.0) L 08/09/22 05:29 Hct 22.9 % (42.0-52.0) L 08/09/22 05:29 MCV 92.6 fL (80.0-100.0) 08/09/22 02:06 MCH 31.5 pg (25.0-34.0) 08/09/22 02:06 MCHC 34.0 g/dL (32.0-36.0) 08/09/22 02:06 RDW Std Deviation 46.4 fL (36.4-46.3) H 08/09/22 02:06 RDW Coeff of Qian 13.8 % (11.5-14.5) 08/09/22 02:06 Plt Count 252 K/uL (130-400) 08/09/22 02:06 MPV 9.3 fL (9.4-12.4) L 08/09/22 02:06 Immature Gran % (Auto) 0.6 % 08/09/22 02:06 Neut % (Auto) 67.5 % 08/09/22 02:06 Lymph % (Auto) 21.5 % 08/09/22 02:06 Roberts % (Auto) 7.6 % 08/09/22 02:06 Eos % (Auto) 2.4 % 08/09/22 02:06 Baso % (Auto) 0.4 % 08/09/22 02:06 Neut # (Auto) 5.57 K/uL (1.40-6.50) 08/09/22 02:06 Lymph # (Auto) 1.78 K/uL (1.2-3.4) 08/09/22 02:06 Roberts # (Auto) 0.63 K/uL (0.11-0.59) H 08/09/22 02:06 Eos # (Auto) 0.20 K/uL (0-0.50) 08/09/22 02:06 Baso # (Auto) 0.03 K/uL (0-0.2) 08/09/22 02:06 Immature Gran # (Auto) 0.05 K/uL (0.01-0.20) 08/09/22 02:06 RBC Morphology Unremarkable 08/08/22 13:55 PT 11.6 Seconds (9.0-12.0) 08/08/22 13:55 INR 1.1 (0.9-1.1) 08/08/22 13:55 APTT 27.1 Seconds (21.0-31.0) 08/08/22 13:55 PTT Ratio 1.0 08/08/22 13:55 Sodium 138 mmol/L (136-145) 08/09/22 02:06 Potassium 4.0 mmol/L (3.5-5.1) 08/09/22 02:06 Chloride 109 mmol/L (98-107) H 08/09/22 02:06 Carbon Dioxide 24 mmol/L (21-32) 08/09/22 02:06 Anion Gap 5 (3-11) 08/09/22 02:06 BUN 49 mg/dl (6-23) H 08/09/22 02:06 Creatinine 1.20 mg/dl (0.6-1.4) 08/09/22 02:06 Est Cr Clr Drug Dosing 53.0 ml/min 08/09/22 02:06 Est GFR ( Amer) 65.8 ml/min 08/09/22 02:06 Est GFR (Non-Af Amer) 56.8 ml/min 08/09/22 02:06 BUN/Creatinine Ratio 40.8 (10-20) H 08/09/22 02:06 Glucose 100 mg/dl (70-99(Fasting)) H 08/09/22 02:06 Calcium 8.0 mg/dl (8.5-10.1) L 08/09/22 02:06 Total Bilirubin 0.5 mg/dl (0.2-1.0) 08/08/22 13:55 AST 15 U/L (13-39) 08/08/22 13:55 ALT 10 U/L (7-52) 08/08/22 13:55 Alkaline Phosphatase 65 U/L (34-104) 08/08/22 13:55 Troponin I High Sens 8.2 pg/ml (0-20) 08/08/22 13:55 Total Protein 6.1 gm/dl (6.0-8.3) 08/08/22 13:55 Albumin 3.6 gm/dl (3.4-5.0) 08/08/22 13:55 Globulin 2.5 gm/dl (2.5-4.0) 08/08/22 13:55 Albumin/Globulin Ratio 1.4 (0.9-2) 08/08/22 13:55 SARS-CoV-2, RNA, NAAT NEGATIVE (NEGATIVE) 08/08/22 Unknown Blood Type O Positive 08/08/22 14:26 Antibody Screen NEGATIVE 08/08/22 14:26 Crossmatch See Detail 08/08/22 14:26 Impressions Chest X-Ray 08/08/22 13:56 XR chest 1V portable HISTORY: GI bleed. COMPARISON: Chest 03/22/2022 FINDINGS: There are low lung volumes. No pneumothorax. No pleural effusions. No new focal lung consolidations to suggest a pneumonia. No evidence for pulmonary edema. The heart is mildly enlarged. This remains unchanged. There is a left- sided dual-chamber pacemaker again noted. A few left basilar linear densities favor subsegmental atelectasis or scarring. This is similar to the prior study. IMPRESSION: No significant change compared to the prior study. No acute process. ACT 112: Negative or not required by law. Electronically signed by: Brannon Nielsen M.D. 08/08/2022 2:21 PM PG Care Time/CCT Total # of Minutes Spent Total Time Spent with Patient: Total time spent is greater than 50% in coordination of care (as documented) at patient's floor/unit and/or counseling patient: Coding Level of Care Code 24706 INT INP/OBS CARE 3/75MIN Diagnoses Symptomatic anemia D64.9 GI bleed K92.2
[2022-08-09] MEDS: PANTOprazole 40 MG in DEXTROSE 5% 100 ML IV SCH ×3 (10:35→20:57)
--- NOTE | 2022-08-09 10:51 | Electrocardiogram Report ---
Test Reason : Blood Pressure : / mmHG Vent. Rate : 075 BPM Atrial Rate : 075 BPM P-R Int : 184 ms QRS Dur : 146 ms QT Int : 430 ms P-R-T Axes : 036 -70 099 degrees QTc Int : 480 ms Atrial-sensed ventricular-paced rhythm Abnormal ECG When compared with ECG of 22-MAR-2022 13:03, Vent. rate has increased BY 25 BPM Confirmed by Johnathon Sanon ([id number]) on 08/09/2022 10:51:37 AM Referred By: Confirmed By:Cam Sanon
[2022-08-09] MEDS ORDERED: METOCLOPRAMIDE HCL INJ 5 MG/ML 2 ML VIAL IV STA (10:54)
--- NOTE | 2022-08-09 11:37 | Anesthesiology Consultation ---
Date of Service August 09, 2022 Assessment & Plan (1) Encounter for pre-operative examination: Chart Review Chart Review: Acceptable Risk for Surgery and Patient NOT seen in Pre Admission Testing Consults Requested none History Surgery Operation Date: 08/09/22 17:15 Proposed Procedures p Esophagogastroduodenoscopy Dr Mcclain - Cristi Marie Case, DO Height/Weight Height: 5 ft 5 in Weight: 98.2 kg Allergies Allergy/AdvReac Type Severity Reaction Status Date / Time Iodinated Contrast Media Allergy Mild Shakiness Verified 08/09/22 13:00 Medications Home Medications Medication Instructions Recorded Confirmed Last Taken aspirin 81 mg tablet,delayed 81 mg PO QAM 11/05/19 08/08/22 08/08/22 10:00 release chlorthalidone 25 mg tablet 25 mg PO Q OTHER DAY 11/05/19 08/08/22 08/08/22 10:00 potassium chloride 10 mEq 10 meq PO QAM 11/05/19 08/08/22 08/08/22 10:00 capsule,extended release apixaban 5 mg tablet (Eliquis) 5 mg PO BID 03/17/22 08/08/22 08/08/22 10:00 baclofen 10 mg tablet 10 mg PO TID 03/17/22 08/08/22 08/08/22 10:00 furosemide 20 mg tablet (Lasix) 20 mg PO QAM 03/17/22 08/08/22 08/08/22 10:00 multivitamin 1 tab PO QAM 03/17/22 08/08/22 07/19/22 sertraline 50 mg tablet (Zoloft) 50 mg PO HS 03/17/22 08/08/22 07/19/22 olmesartan 20 mg tablet 20 mg PO DAILY 08/08/22 08/08/22 08/08/22 10:00 Active Medications Generic Name Dose Route Start Last Admin Trade Name Freq PRN Reason Stop Dose Admin Lactated Ringer's 1,000 mls @ 80 mls/hr 08/09/22 00:00 08/09/22 01:10 Lr IV 09/08/22 00:00 80 mls/hr .[id number] AVERY Administration Pantoprazole Sodium 40 mg/ 100 mls @ 20 mls/hr 08/09/22 09:45 08/09/22 10:35 Dextrose IV 09/08/22 09:44 8 mg/hr Q5H AVERY 20 mls/hr Administration 8 MG/HR Past Medical History Medical History (Updated 08/09/22 @ 11:36 by Chung Hill MD) 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 [facility] Cardiology/Dr. Croado. Symptomatic anemia Vertigo stable per pt Past Family History Family History Uncle Diabetes Father Colon cancer Other No family history of adverse response to anesthesia Past Surgical History Surgical History History of carpal tunnel surgery of left wrist History of carpal tunnel surgery of right wrist History of colonoscopy History of nasal surgery History of tonsillectomy S/P cardiac pacemaker procedure Social History Smoking Status: Never smoker tobacco type: smokeless tobacco Hx Alcohol Use: Yes Alcohol type: beer alcohol intake frequency: holidays/special occasions only Hx Substance Use: No substance use type: does not use Physical Exam Vital Signs Last Vital Signs Temp 36.6 C 08/09/22 13:01 Pulse 87 08/09/22 13:01 Resp 16 08/09/22 13:01 BP 116/61 08/09/22 13:01 Pulse Ox 95 08/09/22 13:01 O2 Del Method Room Air 08/09/22 13:01 O2 Flow Rate 2.0 08/09/22 07:46 Testing Laboratory Results 08/09/22 12:27 08/09/22 02:06 PT 11.6 Seconds (9.0-12.0) 08/08/22 13:55 INR 1.1 (0.9-1.1) 08/08/22 13:55 APTT 27.1 Seconds (21.0-31.0) 08/08/22 13:55 Blood Type O Positive 08/08/22 14:26 Antibody Screen NEGATIVE 08/08/22 14:26 Electrocardiogram Date: 08/08/22 DICTATED BY:Johnathon Sanon MD Test Reason : Blood Pressure : / mmHG Vent. Rate : 075 BPM Atrial Rate : 075 BPM P-R Int : 184 ms QRS Dur : 146 ms QT Int : 430 ms P-R-T Axes : 036 -70 099 degrees QTc Int : 480 ms Atrial-sensed ventricular-paced rhythm Abnormal ECG When compared with ECG of 22-MAR-2022 13:03, Vent. rate has increased BY 25 BPM Confirmed by Johnathon Sanon ([id number]) on 08/09/2022 10:51:37 AM Other Testing Chest X-Ray Date: 03/22/22 No pneumothorax. No pleural effusions. No focal lung consolidations to suggest a pneumonia. No evidence for pulmonary edema. The heart is top normal in size. There is left-sided pacemaker. There are low lung volumes. Degenerative changes noted within the thoracic spine. Mildly tortuous thoracic aorta. IMPRESSION: No acute process. Echocardiogram Date: 09/28/21 EF 56% No regional wall motion abnormalities were noted Moderately thickened trileaflet aortic valve, no aortic stenosis. Trace aortic regurgitation Pacer/ICD electrode noted in RV/RA Stress Test Date: 07/26/17 Pharmacologic MPHR not listed on report EF 58% Normal without evidence for pharmacologically induced ischemia
[2022-08-09 12:57] LABS: Hematocrit (blood only) 23.5 % (42.0-52.0)
[2022-08-09] MEDS ORDERED: LIDOCAINE 2% MPF LOCAL 5 ML VIAL INFIL ONE (14:17)
[2022-08-09] MEDS ORDERED: PROPOFOL IV EMULSION 10 MG/ML 20 ML VIAL IV ONE (14:17)
[2022-08-09] MEDS ORDERED: PHENYLEPHRINE 100MCG/ML 5ML SYR ONE (14:17)
--- NOTE | 2022-08-09 14:38 | GI REPORT ---
Patient Name: Tyler Campos Procedure Date: 08/09/2022 1:44 PM Date of : 1940 Admit Type: Inpatient Age: 81 Gender: Male Attending MD: Cristi Mcclain DO, Procedure: Upper GI endoscopy Providers: Cristi Mcclain DO Referring MD: Jonh Ballesteros Indications: Acute post hemorrhagic anemia, Melena Medicines: Monitored Anesthesia Care Complications: No immediate complications. Estimated Blood Loss: Estimated blood loss: none. Procedure: Pre-Anesthesia Assessment: - Prior to the procedure, a History and Physical was performed, and patient medications and allergies were reviewed. The patient's tolerance of previous anesthesia was also reviewed. The risks and benefits of the procedure and the sedation options and risks were discussed with the patient. All questions were answered, and informed consent was obtained. Prior Anticoagulants: The patient has taken Eliquis (apixaban), last dose was 1 day prior to procedure. ASA Grade Assessment: III - A patient with severe systemic disease. After reviewing the risks and benefits, the patient was deemed in satisfactory condition to undergo the procedure. After obtaining informed consent, the endoscope was passed under direct vision. Throughout the procedure, the patient's blood pressure, pulse, and oxygen saturations were monitored continuously. The Scope was introduced through the mouth, and advanced to the second part of duodenum. The upper GI endoscopy was accomplished without difficulty. The patient tolerated the procedure well. Findings: The esophagus was normal. The stomach was normal. One non-bleeding cratered duodenal ulcer with a visible vessel was found in the duodenal bulb. The lesion was 10 mm in largest dimension. Area was successfully injected with 2 mL of a 0.1 mg/mL solution of epinephrine for hemostasis. Fulguration to ablate the lesion by bipolar probe was successful. A 10 to 30 mm non-bleeding diverticulum was found in the second portion of the duodenum. Impression: - Normal esophagus. - Normal stomach. - Non-bleeding duodenal ulcer with a visible vessel. Injected. Treated with bipolar cautery. - Non-bleeding duodenal diverticulum. - No specimens collected. Recommendation: - Return patient to hospital [facility] for ongoing care. - Clear liquid diet today. - Continue present medications. Cristi Mcclain DO 08/09/2022 2:38:19 PM This report has been signed electronically. Note Initiated On: 08/09/2022 1:44 PM Number of Addenda: 0 I attest to the content of the Intraoperative Record and orders documented therein, exceptions below {[id number]}
--- NOTE | 2022-08-09 15:17 | Anesthesiology Progress Note ---
Date of Service August 09, 2022 Anesthesia Post Procedure Vital Signs Vital Signs: Temp Pulse Pulse Pulse Resp BP BP 08/09/22 15:14 65 16 94/51 L 08/09/22 14:59 61 16 78/43 L 08/09/22 14:43 60 16 78/48 L 08/09/22 14:29 64 16 91/47 L 08/09/22 13:01 97.9 F 87 16 116/61 08/09/22 12:57 72 08/09/22 12:25 98.2 F 78 20 121/58 L 08/09/22 07:46 98.6 F 84 18 120/72 08/09/22 03:00 97.9 F 75 16 94/58 L 08/08/22 22:58 98.2 F 74 18 119/73 08/09/22 00:46 97.9 F 76 18 100/57 L 08/08/22 23:34 98.2 F 72 16 113/59 L 08/08/22 23:01 71 08/08/22 22:54 98.2 F 74 18 121/60 08/08/22 22:39 98.4 F 74 18 104/55 L 08/08/22 22:37 98.4 F 74 18 104/55 L 08/08/22 20:38 98.6 F 76 18 154/86 H 08/08/22 19:03 69 08/08/22 20:04 97.9 F 74 18 140/71 08/08/22 19:09 97.9 F 77 18 138/63 08/08/22 18:36 98.1 F 77 16 135/62 08/08/22 18:21 98.2 F 76 95 H 147/62 H 08/08/22 18:11 08/08/22 18:05 98.4 F 75 18 143/63 H 08/08/22 17:52 78 08/08/22 16:58 98.1 F 72 18 119/47 L 08/08/22 16:31 77 20 123/55 L 08/08/22 16:07 81 22 125/57 L Pulse Ox O2 Del Method O2 Flow Rate 08/09/22 15:14 97 Room Air 08/09/22 14:59 95 Room Air 08/09/22 14:43 97 Room Air 08/09/22 14:29 96 Room Air 08/09/22 13:01 95 Room Air 08/09/22 12:57 08/09/22 12:25 94 Room Air 08/09/22 07:46 97 Nasal Cannula 2.0 08/09/22 03:00 94 Room Air 08/08/22 22:58 94 08/09/22 00:46 97 Room Air 08/08/22 23:34 92 Room Air 08/08/22 23:01 08/08/22 22:54 94 Room Air 08/08/22 22:39 94 08/08/22 22:37 94 Room Air 08/08/22 20:38 94 Room Air 08/08/22 19:03 08/08/22 20:04 96 Room Air 08/08/22 19:09 97 Room Air 08/08/22 18:36 94 08/08/22 18:21 08/08/22 18:11 Room Air 08/08/22 18:05 96 08/08/22 17:52 08/08/22 16:58 97 Room Air 08/08/22 16:31 98 Room Air 08/08/22 16:07 97 Room Air Pain Intensity Upper Abdomen: Pain Intensity: 3 Transfer of Care Handoff Completed per policy Notes Mental Status: alert / awake / arousable and participated in evaluation Patient Amnestic to Procedure: Yes Nausea / Vomiting: adequately controlled Pain: adequately controlled Airway Patency, RR, SpO2: stable & adequate BP & HR: stable & adequate Hydration State: stable & adequate Anesthetic Complications: no major complications apparent and Pt Satisfied with anesthetic care
--- NOTE | 2022-08-09 17:04 | Progress Notes ---
SUBJECTIVE: Hospital rounds check. The patient was admitted for GI bleed. Required 2 units of degroot sfusion. He has a GED which revealed a duodenal ulcer, this was coagulated. At this point in time, his anticoagulants have been stopped. OBJECTIVE: Assessment of his hip reveals clean wound. Neurovascular check femoral sciatic nerve is normal. No evidence of any wound problems. Calves nontender. ASSESSMENT AND PLAN: Status post hip replacement, three weeks out acute GI bleed, has been appropria tely managed. Continue with antacids and proton pump inhibitors. Resume the chemical DVT prophylaxi s when medicine is comfortable. At this point in time, we used a below-knee SHLOMO stockings and above- knee thigh high sequential compressive devices. These were just ordered. Allow mobilization based o n the medical recommendations, hip precautions, physical therapy to continue and could be full weight bearing on the left lower extremity with his walker. Avoid hyperflexion, internal rotation, and addu ction. Job ID: [id number]
--- NOTE | 2022-08-09 20:48 | Hospitalist Progress Note ---
Date of Service August 09, 2022 Assessment & Plan (1) Acute upper GI bleed: Plan: 2nd to duodenal ulcer s/p 2 units PRBCs since admission H/H stable today with Hb of ~8 Eliquis + asa on hold PPI drip appreciate GI assistance (2) Acute blood loss anemia: Plan: 2nd to #1/#3 s/p 2 units PRBCs since admission with stable H/H today repeat H/H tonight, then full CBC in am will give Venofer 200mg x 1 tomorrow AM (3) Duodenal ulcer with hemorrhage: Plan: duodenal ulcer likely the source of his upper GI bleed per EGD today -- "One non-bleeding cratered duodenal ulcer with a visible vessel was found in the duodenal bulb. The lesion was 10 mm in largest dimension. Area was successfully injected with 2 mL of a 0.1 mg/mL solution of epinephrine for hemostasis. Fulguration to ablate the lesion by bipolar probe was successful." Plan - * per GI ok for clear liquid diet starting tonight * PPI drip x 72 hours * hold eliquis, asa, NSAIDs, etc * will send stool for H Pylori Ag * suspect chronic aspirin use contributed to this along with recent stress of his hip surgery, etc appreciate GI assistance (4) Hypotension: Plan: resolved 2nd to #1, #2 cont IV fluids but reduce rate to 50cc/hr labs am holding all home BP meds (5) DVT (deep venous thrombosis): Plan: right leg Noted in March 2022, has been on Eliquis since then was discovered by PCP by report was felt to be "chronic" based on his description etiology of DVT?? no family h/o VTE never had DVT or PE prior to recent resume Eliquis only when felt safe to do so by Gastroenterology follows with Dr Ramos, heme/onc, [facility] system (6) Pacemaker: Plan: Implanted for symptomatic bradycardia, no issues (7) CKD (chronic kidney disease): Plan: Creatinine baseline appears 1.331.55, admitting creatinine 1.41 Cr today 1.2 baseline CrCl 40s/50s c/w stage 3a CKD bmp am in am for stability (8) Status post total hip replacement, left: Plan: 07/21/[address] Tobias WBAT to left leg hip precautions appreciate visit by orthopedics today (9) Hypertension: Plan: BPs have been low or low-normal; thus, cont to hold chlorthalidone, Lasix, and olmesartan repeat labs AM Plan DVT proph - SCDs; chemical means contraindicated due to acute GI bleeding extensively updated care was d/w Dr Case from GI Admission and Anticipated Discharge Date Admission Date: August 08, 2022 Subjective saw patient post-EGD reviewed EGD results and plan of care (PPI drip x 3 days) at bedside - questions answered no overt GI bleeding today no hematemesis denies any upper abdominal pain telemetry overnight stable/pacing l Review of Systems Review of Systems: gen - "I feel better today" cv - no cp, no orthopnea pulm - no dyspnea GI - no nausea or vomiting Physical Exam Physical Exam: gen - NAD, pleasant skin - generalized pallor mouth - MMM neck - no JVD heart - RRR, s1 s2 lungs - CTA b/l abd - soft NT ND BS+ ext - no edema, pulses 2+ b/l psych - a/o x 3 Results & Data Results & Data Vital Signs (Past 12 Hours) Vital Signs Temp Pulse Pulse Pulse Resp BP BP 08/09/22 19:49 36.7 C 86 18 94/45 L 08/09/22 15:41 36.7 C 66 18 111/54 L 08/09/22 15:14 65 16 94/51 L 08/09/22 14:59 61 16 78/43 L 08/09/22 14:43 60 16 78/48 L 08/09/22 14:29 64 16 91/47 L 08/09/22 13:01 36.6 C 87 16 116/61 08/09/22 12:57 72 08/09/22 12:25 36.8 C 78 20 121/58 L Pulse Ox O2 Del Method 08/09/22 19:49 96 Room Air 08/09/22 15:41 97 Room Air 08/09/22 15:14 97 Room Air 08/09/22 14:59 95 Room Air 08/09/22 14:43 97 Room Air 08/09/22 14:29 96 Room Air 08/09/22 13:01 95 Room Air 08/09/22 12:57 08/09/22 12:25 94 Room Air Laboratory Results Laboratory Results - last 24 hr 08/08/22 08/08/22 08/09/22 14:26 21:37 02:06 WBC 8.26 RBC 2.57 L Hgb 8.1 L 8.1 L Hct 24.2 L 23.8 L MCV 92.6 MCH 31.5 MCHC 34.0 RDW Std Deviation 46.4 H RDW Coeff of Qian 13.8 Plt Count 252 MPV 9.3 L Immature Gran % (Auto) 0.6 Neut % (Auto) 67.5 Lymph % (Auto) 21.5 [place] % (Auto) 7.6 Eos % (Auto) 2.4 Baso % (Auto) 0.4 Neut # (Auto) 5.57 Lymph # (Auto) 1.78 [place] # (Auto) 0.63 H Eos # (Auto) 0.20 Baso # (Auto) 0.03 Immature Gran # (Auto) 0.05 Sodium Potassium Chloride Carbon Dioxide Anion Gap BUN Creatinine Est Cr Clr Drug Dosing Est GFR ( Amer) Est GFR (Non-Af Amer) BUN/Creatinine Ratio Glucose Calcium Blood Type O Positive Antibody Screen NEGATIVE Crossmatch See Detail 08/09/22 08/09/22 08/09/22 02:06 05:29 12:27 WBC RBC Hgb 7.8 L 8.0 L Hct 22.9 L 23.5 L MCV MCH MCHC RDW Std Deviation RDW Coeff of Qian Plt Count MPV Immature Gran % (Auto) Neut % (Auto) Lymph % (Auto) [place] % (Auto) Eos % (Auto) Baso % (Auto) Neut # (Auto) Lymph # (Auto) [place] # (Auto) Eos # (Auto) Baso # (Auto) Immature Gran # (Auto) Sodium 138 Potassium 4.0 Chloride 109 H Carbon Dioxide 24 Anion Gap 5 BUN 49 H Creatinine 1.20 Est Cr Clr Drug Dosing 53.0 Est GFR ( Amer) 65.8 Est GFR (Non-Af Amer) 56.8 BUN/Creatinine Ratio 40.8 H Glucose 100 H Calcium 8.0 L Blood Type Antibody Screen Crossmatch PG Care Time/CCT Total # of Minutes Spent Total Time Spent with Patient: Total time spent is greater than 50% in coordination of care (as documented) at patient's floor/unit and/or counseling patient: Coding Level of Care Code 16122 SUB INP/OBS CARE 3/50MIN Diagnoses Acute upper GI bleed K92.2 Acute blood loss anemia D62 Duodenal ulcer with hemorrhage K26.4 Hypotension I95.9 DVT (deep venous thrombosis) I82.409 Pacemaker Z95.0 CKD (chronic kidney disease) N18.9 Status post total hip replacement, left Z96.642 Hypertension I10
[2022-08-09 21:14] LABS: Hematocrit (blood only) 24.8 % (42.0-52.0); Hemoglobin 8.5 g/dl (14.0-18.0)
[2022-08-10] MEDS: PANTOprazole 40 MG in DEXTROSE 5% 100 ML IV SCH ×5 (01:57→22:07)
[2022-08-10] MEDS: LACTATED RINGER'S 1,000 ML IV SCH (06:22)
[2022-08-10 07:32] LABS: Hematocrit (blood only) 20.7 % (42.0-52.0); Mean Corpuscular Hemoglobin 31.8 pg (25.0-34.0); Mean Corpuscular Hgb Conc 33.8 g/dL (32.0-36.0); Mean Corpuscular Volume 94.1 fL (80.0-100.0); Mean Platelet Volume 9.3 fL (9.4-12.4); Platelet Count 241 K/uL (130-400); RDW Coefficient of Variation 14.4 % (11.5-14.5); RDW Standard Deviation 47.4 fL (36.4-46.3); White Blood Count 7.11 K/ul (4.8-10.8)
[2022-08-10 07:44] LABS: BUN Creatinine Ratio 31.6 (10-20); Calcium 7.9 mg/dl (8.5-10.1); Creatinine Clr Calc Pharmacy 55.4 ml/min; Est GFR (African American) 67.8 ml/min; Est GFR (Non-African American) 58.5 ml/min; Potassium 3.7 mmol/L (3.5-5.1)
[2022-08-10] MEDS ORDERED: IRON SUCROSE 200 MG in 0.9 % SODIUM CHLORIDE 100 ML IV ONE (08:00)
[2022-08-10] MEDS ORDERED: SODIUM CHLORIDE 0.9% 250 ML IV PRN (08:22)
--- NOTE | 2022-08-10 09:11 | Orthopedic Progress Note ---
Date of Service August 10, 2022 Assessment & Plan (1) Status post total hip replacement, left: Plan: Patient is postop left total hip arthroplasty on July 21, [address] Tobias Hospitalist was present during assessment today. Patient's H&H had dropped to 7. He has been ordered 1 unit of blood will be transfused in the near future. At this time he is not having any dizziness however we are being going to be cautious in continuing with exercises in the bed. He was advised on continue with hip precautions. Recommend sleeping with a pillow between legs. If he remains asymptomatic and his H&H increases will consider having patient do physical therapy and walking. He was cautioned and advised on getting assistance with transfers to prevent any falls. He may weight-bear as tolerated on the left lower extremity with a walker. He will continue with the SHLOMO hose for DVT prophylaxis. May remove at night to sleep and put on in the am Continue to hold aspirin and anticoagulation. I will cancel his outpatient physical therapy for Tuesday and continue to monitor his length of stay. If still anticipate being in patient on Tuesday we will cancel outpatient therapy for Tuesday as well. We will continue to follow as needed. Follow-up with Dr. Tobias as scheduled. Present on Admission?: Yes Admission and Anticipated Discharge Date Admission Date: August 08, 2022 Subjective Patient is an 81-year-old male who is a known patient of . He has a history of having a left total hip arthroplasty July 21, 2022. He is seen bedside this morning in bedside chair sitting upright. He reports he is doing well he states he feels pretty good. He denies any shortness of breath dizziness or chest pain. He states he is not having any pain in his hip. He denies any calf pain he offers no concerns at this time.He denies any fever, chills, or pain with inspiration Review of Systems Review of Systems: please refer to HPI Physical Exam Physical Exam: General: Patient is alert and oriented x3 conversive pleasant no acute distress Musculoskeletal/integumentary: Skin over left hip is normal in color and temperature. Incision is well-healed. Negative for any fluctuance or induration. Negative for any palpable tenderness patient's able to tolerate seated hip flexion AB duction. Tolerates gentle internal and external rotation. Calf is soft and nontender. Negative Homans dorsal pedis pulses 2. Results & Data Vital Signs (Past 12 Hours) Vital Signs Temp Pulse Pulse Resp BP BP Pulse Ox 08/10/22 07:30 36.7 C 76 18 115/63 95 08/10/22 03:21 36.5 C 67 18 112/65 95 08/09/22 21:58 81 08/09/22 23:00 36.5 C 79 18 119/63 96 O2 Del Method 08/10/22 07:30 Room Air 08/10/22 03:21 Room Air 08/09/22 21:58 08/09/22 23:00 Room Air Laboratory Results 08/10/22 08/10/22 08/09/22 Range/Units 06:58 06:58 20:53 WBC 7.11 (4.8-10.8) K/ul RBC 2.20 L (4.70-6.10) M/uL Hgb 7.0 L 8.5 L (14.0-18.0) g/dl Hct 20.7 L* 24.8 L (42.0-52.0) % MCV 94.1 (80.0-100.0) fL MCH 31.8 (25.0-34.0) pg MCHC 33.8 (32.0-36.0) g/dL RDW Std Deviation 47.4 H (36.4-46.3) fL RDW Coeff of Qian 14.4 (11.5-14.5) % Plt Count 241 (130-400) K/uL MPV 9.3 L (9.4-12.4) fL Sodium 139 (136-145) mmol/L Potassium 3.7 (3.5-5.1) mmol/L Chloride 108 H (98-107) mmol/L Carbon Dioxide 26 (21-32) mmol/L Anion Gap 5 (3-11) BUN 37 H (6-23) mg/dl Creatinine 1.17 (0.6-1.4) mg/dl Est Cr Clr Drug Dosing 55.4 ml/min Est GFR ( Amer) 67.8 ml/min Est GFR (Non-Af Amer) 58.5 ml/min BUN/Creatinine Ratio 31.6 H (10-20) Glucose 92 (70-99(Fasting)) mg/dl Calcium 7.9 L (8.5-10.1) mg/dl Stool H. pylori Ag 08/09/22 08/09/22 Range/Units 20:45 12:27 WBC (4.8-10.8) K/ul RBC (4.70-6.10) M/uL Hgb 8.0 L (14.0-18.0) g/dl Hct 23.5 L (42.0-52.0) % MCV (80.0-100.0) fL MCH (25.0-34.0) pg MCHC (32.0-36.0) g/dL RDW Std Deviation (36.4-46.3) fL RDW Coeff of Qian (11.5-14.5) % Plt Count (130-400) K/uL MPV (9.4-12.4) fL Sodium (136-145) mmol/L Potassium (3.5-5.1) mmol/L Chloride (98-107) mmol/L Carbon Dioxide (21-32) mmol/L Anion Gap (3-11) BUN (6-23) mg/dl Creatinine (0.6-1.4) mg/dl Est Cr Clr Drug Dosing ml/min Est GFR ( Amer) ml/min Est GFR (Non-Af Amer) ml/min BUN/Creatinine Ratio (10-20) Glucose (70-99(Fasting)) mg/dl Calcium (8.5-10.1) mg/dl Stool H. pylori Ag Pending
--- NOTE | 2022-08-10 09:31 | Hospitalist Progress Note ---
Date of Service August 10, 2022 Assessment & Plan (1) Acute upper GI bleed: Plan: 2nd to duodenal ulcer one cratered duodenal ulcer with visible vessel found in duodenal bulb "The lesion was 10 mm in largest dimension. Area was successfully injected with 2 mL of a 0.1 mg/mL solution of epinephrine for hemostasis. Fulguration to ablate the lesion by bipolar probe was successful. A 10 to 30 mm non-bleeding diverticulum was found in the second portion of the duodenum." s/p 2 units PRBCs since admission given H/H today with Hb of 8-->7.0 will order 1 unit now Eliquis + asa on hold PPI drip appreciate GI assistance (2) Acute blood loss anemia: Plan: s/p 2 units PRBCs since admission with drop in Hgb repeat CBC 1 hr post transfusion and in AM will give Venofer 200mg now (3) Duodenal ulcer with hemorrhage: Plan: duodenal ulcer likely the source of his upper GI bleed per EGD today -- "One non-bleeding cratered duodenal ulcer with a visible vessel was found in the duodenal bulb. The lesion was 10 mm in largest dimension. Area was successfully injected with 2 mL of a 0.1 mg/mL solution of epinephrine for hemostasis. Fulguration to ablate the lesion by bipolar probe was successful." Plan - * per GI was ok for clear liquid diet last night * PPI drip x 72 hours * hold eliquis, asa, NSAIDs, etc * will send stool for H Pylori Ag * suspect chronic aspirin use contributed to this along with recent stress of his hip surgery, etc appreciate GI assistance (4) Hypotension: Plan: resolved 2nd to #1, #2 cont IV fluids but reduce rate to 50cc/hr labs am holding all home BP meds (5) DVT (deep venous thrombosis): Plan: right leg Noted in March 2022, has been on Eliquis since then was discovered by PCP by report was felt to be "chronic" based on his description etiology of DVT?? no family h/o VTE never had DVT or PE prior to recent resume Eliquis only when felt safe to do so by Gastroenterology follows with Dr Ramos, jarred/onc, [facility] (6) Pacemaker: Plan: Implanted for symptomatic bradycardia, no issues (7) CKD (chronic kidney disease): Plan: BUN elevation consistent with UGI bleed BUN 55-->49-->37 baseline CrCl 40s/50s c/w stage 3a CKD Creat 1.17 bmp am in am for stability (8) Status post total hip replacement, left: Plan: 07/21/[address] Tobias WBAT to left leg hip precautions appreciate visit by orthopedics today, discussed with ortho PA in room (9) Hypertension: Plan: BPs have been low or low-normal; thus, cont to hold chlorthalidone, Lasix, and olmesartan 115./63, will follow and cautiously resume BP Rx reviewed with Js RN in room Plan DVT proph - SCDs; chemical means contraindicated due to acute GI bleeding extensively updated by Dr. Ballesteros care was d/w Dr Mcclain from GI by Dr. Ballesteros Admission and Anticipated Discharge Date Admission Date: August 08, 2022 Subjective No sob, passing brian stools x2 overnight, once this morning Review of Systems Respiratory: denies sob Cardiovascular: Additional Comments: denies chest pain Gastrointestinal: passing brian stools Physical Exam Physical Exam: WDWN in NAD Respiratory: clear, no wheeze, rales or rhonchi Cardiovascular: RRR, no murmur, no edema Gastrointestinal (Abdomen): normal bowel sounds, soft, nontender, no hepatosplenomegaly Musculoskeletal: no c/c/e Results & Data Results & Data Vital Signs (Past 12 Hours) Vital Signs Temp Pulse Pulse Resp BP BP Pulse Ox 08/10/22 07:30 36.7 C 76 18 115/63 95 08/10/22 03:21 36.5 C 67 18 112/65 95 08/09/22 21:58 81 08/09/22 23:00 36.5 C 79 18 119/63 96 O2 Del Method 08/10/22 07:30 Room Air 08/10/22 03:21 Room Air 08/09/22 21:58 08/09/22 23:00 Room Air Laboratory Results Hgb 08/09 8.5-->08/10 7.0 Medications Administered remains on Protonix gtts PG Care Time/CCT Total # of Minutes Spent Total Time Spent with Patient: Total time spent is greater than 50% in coordination of care (as documented) at patient's floor/unit and/or counseling patient: Coding Level of Care Code 44821 SUB INP/OBS CARE 2/35MIN Diagnoses Acute upper GI bleed K92.2 Acute blood loss anemia D62 Duodenal ulcer with hemorrhage K26.4 Hypotension I95.9 DVT (deep venous thrombosis) I82.409 Pacemaker Z95.0 CKD (chronic kidney disease) N18.9 Status post total hip replacement, left Z96.642 Hypertension I10
--- NOTE | 2022-08-10 09:56 | Gastroenterology Progress Note ---
Date of Service August 10, 2022 Assessment & Plan (1) Symptomatic anemia: (2) GI bleed: Plan Patient is a 81 y.o. male with a history of left HUANG on 07/21 admitted with symptomatic, acute blood loss anemia and melena/bright red rectal bleeding dx with duodenal ulcer with visible vessel s/p hemostasis. -Clear liquid diet today. If no further bleeding, can advance diet tomorrow. -Continue PPI ggt at 8 mg/hr for a total of 72 hours. -Strict NSAID avoidance. -Supportive care per primary team. Admission and Anticipated Discharge Date Admission Date: August 08, 2022 Supervising Physician Co-Signing Physician Notes Agree with SARI Ruano as above Feeling better today, tolerating PO intake, one dark stool this AM Abd: Soft, NT, ND, +BS Continue Protonix gtt for 72 hours total Consider colonoscopy as outpatient when acute issues resolve Continue supportive care Subjective Patient is doing well status post EGD yesterday with findings of duodenal ulcer with visible vessel s/p hemostasis by Dr. Mcclain. H&H did drop to 7.0 and 20.7. Receiving an iron infusion and plan to transfuse 1 unit PRBC today. Continues PPI ggt. No abdominal pain, n/v. Passed one dark stool this morning per his report. Review of Systems Constitutional: + fatigue; no fever and no chills Gastrointestinal: as per Subjective / HPI Physical Exam Constitutional: WD/WN, vitals as above Eyes: EOM intact bilaterally Respiratory: normal respiratory effort, lungs clear to auscultation Cardiovascular: Rate/Rhythm: regular rate and regular rhythm Heart Sounds: + murmur Gastrointestinal (Abdomen): Inspection/Auscultation: normal bowel sounds Percussion/Palpation: abdomen soft; abdomen nontender Skin: + pallor Psychiatric: A+Ox3, euthymic affect Results & Data Results & Data Vital Signs (Past 12 Hours) Vital Signs Temp Pulse Pulse Resp BP BP Pulse Ox 08/10/22 07:30 36.7 C 76 18 115/63 95 08/10/22 03:21 36.5 C 67 18 112/65 95 08/09/22 21:58 81 08/09/22 23:00 36.5 C 79 18 119/63 96 O2 Del Method 08/10/22 07:30 Room Air 08/10/22 03:21 Room Air 08/09/22 21:58 03/20/23 23:00 Room Air Laboratory Results Laboratory Results WBC 7.11 K/ul (4.8-10.8) 08/10/22 06:58 RBC 2.20 M/uL (4.70-6.10) L 08/10/22 06:58 Hgb 7.0 g/dl (14.0-18.0) L 08/10/22 06:58 Hct 20.7 % (42.0-52.0) L* 08/10/22 06:58 MCV 94.1 fL (80.0-100.0) 08/10/22 06:58 MCH 31.8 pg (25.0-34.0) 08/10/22 06:58 MCHC 33.8 g/dL (32.0-36.0) 08/10/22 06:58 RDW Std Deviation 47.4 fL (36.4-46.3) H 08/10/22 06:58 RDW Coeff of Qian 14.4 % (11.5-14.5) 08/10/22 06:58 Plt Count 241 K/uL (130-400) 08/10/22 06:58 MPV 9.3 fL (9.4-12.4) L 08/10/22 06:58 Immature Gran % (Auto) 0.6 % 08/09/22 02:06 Neut % (Auto) 67.5 % 08/09/22 02:06 Lymph % (Auto) 21.5 % 08/09/22 02:06 [place] % (Auto) 7.6 % 08/09/22 02:06 Eos % (Auto) 2.4 % 08/09/22 02:06 Baso % (Auto) 0.4 % 08/09/22 02:06 Neut # (Auto) 5.57 K/uL (1.40-6.50) 08/09/22 02:06 Lymph # (Auto) 1.78 K/uL (1.2-3.4) 08/09/22 02:06 [place] # (Auto) 0.63 K/uL (0.11-0.59) H 08/09/22 02:06 Eos # (Auto) 0.20 K/uL (0-0.50) 08/09/22 02:06 Baso # (Auto) 0.03 K/uL (0-0.2) 08/09/22 02:06 Immature Gran # (Auto) 0.05 K/uL (0.01-0.20) 08/09/22 02:06 RBC Morphology Unremarkable 08/08/22 13:55 PT 11.6 Seconds (9.0-12.0) 08/08/22 13:55 INR 1.1 (0.9-1.1) 08/08/22 13:55 APTT 27.1 Seconds (21.0-31.0) 08/08/22 13:55 PTT Ratio 1.0 08/08/22 13:55 Sodium 139 mmol/L (136-145) 08/10/22 06:58 Potassium 3.7 mmol/L (3.5-5.1) 08/10/22 06:58 Chloride 108 mmol/L (98-107) H 08/10/22 06:58 Carbon Dioxide 26 mmol/L (21-32) 08/10/22 06:58 Anion Gap 5 (3-11) 08/10/22 06:58 BUN 37 mg/dl (6-23) H 08/10/22 06:58 Creatinine 1.17 mg/dl (0.6-1.4) 08/10/22 06:58 Est Cr Clr Drug Dosing 55.4 ml/min 08/10/22 06:58 Est GFR ( Amer) 67.8 ml/min 08/10/22 06:58 Est GFR (Non-Af Amer) 58.5 ml/min 08/10/22 06:58 BUN/Creatinine Ratio 31.6 (10-20) H 08/10/22 06:58 Glucose 92 mg/dl (70-99(Fasting)) 08/10/22 06:58 Calcium 7.9 mg/dl (8.5-10.1) L 08/10/22 06:58 Total Bilirubin 0.5 mg/dl (0.2-1.0) 08/08/22 13:55 AST 15 U/L (13-39) 08/08/22 13:55 ALT 10 U/L (7-52) 08/08/22 13:55 Alkaline Phosphatase 65 U/L (34-104) 08/08/22 13:55 Troponin I High Sens 8.2 pg/ml (0-20) 08/08/22 13:55 Total Protein 6.1 gm/dl (6.0-8.3) 08/08/22 13:55 Albumin 3.6 gm/dl (3.4-5.0) 08/08/22 13:55 Globulin 2.5 gm/dl (2.5-4.0) 08/08/22 13:55 Albumin/Globulin Ratio 1.4 (0.9-2) 08/08/22 13:55 SARS-CoV-2, RNA, NAAT NEGATIVE (NEGATIVE) 08/08/22 Unknown Blood Type O Positive 08/08/22 14:26 Antibody Screen NEGATIVE 08/08/22 14:26 Crossmatch See Detail 08/08/22 14:26 Impressions Chest X-Ray 08/08/22 13:56 XR chest 1V portable HISTORY: GI bleed. COMPARISON: Chest 03/22/2022 FINDINGS: There are low lung volumes. No pneumothorax. No pleural effusions. No new focal lung consolidations to suggest a pneumonia. No evidence for pulmonary edema. The heart is mildly enlarged. This remains unchanged. There is a left- sided dual-chamber pacemaker again noted. A few left basilar linear densities favor subsegmental atelectasis or scarring. This is similar to the prior study. IMPRESSION: No significant change compared to the prior study. No acute process. ACT 112: Negative or not required by law. Electronically signed by: Brannon Nielsen M.D. 08/08/2022 2:21 PM PG Care Time/CCT Total # of Minutes Spent Total Time Spent with Patient: Total time spent is greater than 50% in coordination of care (as documented) at patient's floor/unit and/or counseling patient: Coding Level of Care Code 73938 SUB INP/OBS CARE 3/50MIN Diagnoses Symptomatic anemia D64.9 GI bleed K92.2
[2022-08-10 15:45] LABS: Hematocrit (blood only) 25.3 % (42.0-52.0); Hemoglobin 8.6 g/dl (14.0-18.0); Mean Corpuscular Hemoglobin 31.3 pg (25.0-34.0); Mean Platelet Volume 9.3 fL (9.4-12.4); Nucleated RBC # (auto) 0.02 K/uL (0-0.12); Nucleated RBC % (auto) 0.3 %; Platelet Count 245 K/uL (130-400); RDW Coefficient of Variation 14.7 % (11.5-14.5); Red Blood Count 2.75 M/uL (4.70-6.10); White Blood Count 7.36 K/ul (4.8-10.8)
[2022-08-11] MEDS: LACTATED RINGER'S 1,000 ML IV SCH (03:12)
[2022-08-11] MEDS: PANTOprazole 40 MG in DEXTROSE 5% 100 ML IV SCH ×5 (03:12→22:46)
[2022-08-11 07:16] LABS: Hematocrit (blood only) 22.6 % (42.0-52.0); Hemoglobin 7.7 g/dl (14.0-18.0); Mean Corpuscular Hemoglobin 31.3 pg (25.0-34.0); Mean Corpuscular Hgb Conc 34.1 g/dL (32.0-36.0); Mean Corpuscular Volume 91.9 fL (80.0-100.0); Mean Platelet Volume 9.4 fL (9.4-12.4); Nucleated RBC # (auto) 0.02 K/uL (0-0.12); Nucleated RBC % (auto) 0.4 %; Platelet Count 230 K/uL (130-400); RDW Standard Deviation 48.9 fL (36.4-46.3); Red Blood Count 2.46 M/uL (4.70-6.10); White Blood Count 5.58 K/ul (4.8-10.8)
--- NOTE | 2022-08-11 10:02 | Hospitalist Progress Note ---
Date of Service August 11, 2022 Assessment & Plan (1) Acute upper GI bleed: Plan: 2nd to duodenal ulcer s/p 3 units PRBCs since admission H/H dropped this morning, still passing brian stools Eliquis + asa on hold PPI drip appreciate GI assistance reviewed with FRANCIS Martin encouraged OOB to chair Present on Admission?: Yes (2) Acute blood loss anemia: Plan: 2nd to #1/#3 s/p 3 units PRBCs since admission repeat H/H today, then in am Pt made aware that if Hgb should drop any further, may need further transfusion given Venofer 200mg x 1 Present on Admission?: Yes (3) Duodenal ulcer with hemorrhage: Plan: duodenal ulcer likely the source of his upper GI bleed per EGD -- "One non-bleeding cratered duodenal ulcer with a visible vessel was found in the duodenal bulb. The lesion was 10 mm in largest dimension. Area was successfully injected with 2 mL of a 0.1 mg/mL solution of epinephrine for hemostasis. Fulguration to ablate the lesion by bipolar probe was successful." Plan - * per GI ok for clear liquid diet, depending on Hgb, consider advance diet to full liquid * PPI drip x 72 hours * hold eliquis, asa, NSAIDs, etc sent stool for H Pylori Ag pending * suspect chronic aspirin use contributed to this along with recent stress of his hip surgery, etc appreciate GI assistance (4) Hypotension: Plan: resolved 2nd to #1, #2 dc IVF holding all home BP meds BP 129/74 (5) DVT (deep venous thrombosis): Plan: right leg Noted in March 2022, has been on Eliquis since then was discovered by PCP by report was felt to be "chronic" based on his description has seen a pepper cutter, as per pt who felt was chronic and thus cleared for surgical intervention etiology of DVT?? no family h/o VTE never had DVT or PE prior to recent continue to hold Eliquis follows with jarred Hansen/onc, [facility] (6) Pacemaker: Plan: Implanted for symptomatic bradycardia, no issues (7) CKD (chronic kidney disease): Plan: Creatinine baseline appears 1.331.55, admitting creatinine 1.41 Cr today 1.17 baseline CrCl 40s/50s c/w stage 3a CKD bmp am in am for stability (8) Status post total hip replacement, left: Plan: 07/21/[address] Tobias WBAT to left leg hip precautions appreciate visit by orthopedics today (9) Hypertension: Plan: BPs have been low or low-normal; thus, cont to hold chlorthalidone, Lasix, and olmesartan repeat labs AM Plan DVT proph - SCDs; chemical means contraindicated due to acute GI bleeding. Offered to call family to update, pt stated was not necessary Admission and Anticipated Discharge Date Admission Date: August 08, 2022 Subjective Patient is doing well status post transfusion of 2 units PRBC then EGD 08/09 with findings of duodenal ulcer with visible vessel s/p hemostasis by Dr. Mcclain. On 07/13 H&H did drop to 7.0 and 20.7. Received an iron infusion and was transfused 1 unit PRBC in addition on 08/10 (total 3 units). Continues PPI ggt. No abdominal pain, n/v. Passed maroon stool this morning currently in toilet. Review of Systems Review of Systems: gen - "I feel better today" cv - no cp, no orthopnea, denies dizziness with standing pulm - no dyspnea GI - no nausea or vomiting Respiratory: denies sob Cardiovascular: Additional Comments: denies chest pain Gastrointestinal: passing brian stools, less stool production Neurologic: no deficits Physical Exam Physical Exam: WDWN in NAD Cardiovascular: RRR, no murmur, no edema Gastrointestinal (Abdomen): normal bowel sounds, soft, nontender, no hepatosplenomegaly Musculoskeletal: no cyanosis or clubbing, extremities motor strength 5/5 Neurologic: PERRL, EOMI, accommodation nl, no face palsy, no dysarthria Results & Data Results & Data Vital Signs (Past 12 Hours) Vital Signs Temp Pulse Pulse Resp BP Pulse Ox O2 Del Method 08/11/22 08:00 36.8 C 60 20 129/74 97 Room Air 08/11/22 02:45 36.7 C 69 18 115/65 94 Room Air 08/10/22 23:49 71 08/10/22 23:16 36.9 C 73 18 137/68 94 Room Air 08/10/22 22:17 36.8 C 66 18 153/67 H 95 Room Air Laboratory Results 07/22 11.3-->08/08 7.9-transfused 2 units-->8.1-->8.5-->7.0-transfused 1 unit-->8.6-->7.7 PG Care Time/CCT Total # of Minutes Spent Total Time Spent with Patient: Total time spent is greater than 50% in coordination of care (as documented) at patient's floor/unit and/or counseling patient: Coding Level of Care Code 97811 SUB INP/OBS CARE 2/35MIN Diagnoses Acute upper GI bleed K92.2 Acute blood loss anemia D62 Duodenal ulcer with hemorrhage K26.4 Hypotension I95.9 DVT (deep venous thrombosis) I82.409 Pacemaker Z95.0 CKD (chronic kidney disease) N18.9 Status post total hip replacement, left Z96.642 Hypertension I10
[2022-08-11 15:03] LABS: Hematocrit (blood only) 26.2 % (42.0-52.0); Mean Corpuscular Hemoglobin 31.1 pg (25.0-34.0); Mean Corpuscular Hgb Conc 34.4 g/dL (32.0-36.0); Mean Corpuscular Volume 90.7 fL (80.0-100.0); Mean Platelet Volume 9.3 fL (9.4-12.4); Platelet Count 272 K/uL (130-400); RDW Coefficient of Variation 15.4 % (11.5-14.5); RDW Standard Deviation 49.5 fL (36.4-46.3); Red Blood Count 2.89 M/uL (4.70-6.10); White Blood Count 6.72 K/ul (4.8-10.8)
[2022-08-12] MEDS: PANTOprazole 40 MG in DEXTROSE 5% 100 ML IV SCH ×2 (03:57→08:53)
[2022-08-12 06:39] LABS: Hematocrit (blood only) 23.5 % (42.0-52.0); Hemoglobin 8.1 g/dl (14.0-18.0); Mean Corpuscular Hemoglobin 31.8 pg (25.0-34.0); Mean Corpuscular Hgb Conc 34.5 g/dL (32.0-36.0); Mean Corpuscular Volume 92.2 fL (80.0-100.0); Mean Platelet Volume 9.3 fL (9.4-12.4); Platelet Count 239 K/uL (130-400); RDW Coefficient of Variation 15.5 % (11.5-14.5); RDW Standard Deviation 48.6 fL (36.4-46.3); Red Blood Count 2.55 M/uL (4.70-6.10); White Blood Count 5.52 K/ul (4.8-10.8)
--- NOTE | 2022-08-12 09:49 | Gastroenterology Progress Note ---
Date of Service August 12, 2022 Assessment & Plan (1) Symptomatic anemia: (2) GI bleed: Plan Patient is a 81 y.o. male with a history of left HUANG on 07/21 admitted with symptomatic, acute blood loss anemia and melena/bright red rectal bleeding dx with duodenal ulcer with visible vessel s/p hemostasis. -Diet being advanced. -Continue PPI ggt at 8 mg/hr for a total of 72 hours, then start Pantoprazole 40 mg BID. -Avoid NSAIDs. -Supportive care per primary team. -Follow up in our office upon discharge within 1-2 weeks. Admission and Anticipated Discharge Date Admission Date: August 08, 2022 Subjective Patient reports he is feeling better. Wants to ambulate today. Diet has been advanced. Despite drop in hgb to 8.1 this morning, he denies any further overt GIB. Continues PPI ggt. No abdominal pain, n/v or other GI complaints. Review of Systems Constitutional: no problem reported Gastrointestinal: as per Subjective / HPI Physical Exam Constitutional: WD/WN, vitals as above Respiratory: normal respiratory effort, lungs clear to auscultation Cardiovascular: RRR, no murmur, no edema Gastrointestinal (Abdomen): normal bowel sounds, soft, nontender, no hepatosplenomegaly Psychiatric: A+Ox3, euthymic affect Results & Data Results & Data Vital Signs (Past 12 Hours) Vital Signs Temp Pulse Pulse Pulse Resp BP Pulse Ox 08/12/22 08:37 63 08/12/22 07:58 36.6 C 86 20 147/77 H 97 08/12/22 00:00 66 08/12/22 02:39 36.6 C 71 20 121/73 94 08/11/22 23:21 37.0 C 69 20 125/68 95 O2 Del Method 08/12/22 08:37 08/12/22 07:58 Room Air 08/12/22 00:00 08/12/22 02:39 Room Air 08/11/22 23:21 Room Air Laboratory Results Abnormal lab results 08/11/22 08/12/22 Range/Units 14:37 06:22 RBC 2.89 L 2.55 L (4.70-6.10) M/uL Hgb 9.0 L 8.1 L (14.0-18.0) g/dl Hct 26.2 L 23.5 L (42.0-52.0) % RDW Std Deviation 49.5 H 48.6 H (36.4-46.3) fL RDW Coeff of Qian 15.4 H 15.5 H (11.5-14.5) % MPV 9.3 L 9.3 L (9.4-12.4) fL PG Care Time/CCT Total # of Minutes Spent Total Time Spent with Patient: Total time spent is greater than 50% in coordination of care (as documented) at patient's floor/unit and/or counseling patient: Coding Level of Care Code 89530 SUB INP/OBS CARE 2/35MIN Diagnoses Symptomatic anemia D64.9 GI bleed K92.2
--- NOTE | 2022-08-12 11:55 | Hospitalist Progress Note ---
Date of Service August 12, 2022 Assessment & Plan (1) Acute upper GI bleed: Plan: 2nd to duodenal ulcer s/p 3 units PRBCs since admission Hgb 8.5-->7.0-unit blood given->8.6-->7.7-->9.0-->8.1 Eliquis + asa on hold PPI drip will be changed to oral bid diet advanced to low residue appreciate GI assistance reviewed with RN encouraged OOB to chair (2) Acute blood loss anemia: Plan: 2nd to #1/#3 s/p 3 units PRBCs since admission repeat H/H today, then in am Pt made aware that based on Hgb will determine timing of dc given Venofer 200mg x 1 (3) Duodenal ulcer with hemorrhage: Plan: duodenal ulcer likely the source of his upper GI bleed per EGD -- "One non-bleeding cratered duodenal ulcer with a visible vessel was found in the duodenal bulb. The lesion was 10 mm in largest dimension. Area was successfully injected with 2 mL of a 0.1 mg/mL solution of epinephrine for hemostasis. Fulguration to ablate the lesion by bipolar probe was successful." Plan - * per GI ok for clear liquid diet, depending on Hgb, consider advance diet to full liquid, diet advanced to low residue * PPI drip x 72 hours, now transitioned to oral * hold eliquis, asa, NSAIDs, etc sent stool for H Pylori Ag Negative * suspect chronic aspirin use contributed to this along with recent stress of his hip surgery, etc appreciate GI assistance (4) Hypotension: Plan: resolved 2nd to #1, #2 dc IVF holding all home BP meds BP 147/77 resume Olmesartan. Hold on diuretic for now (5) DVT (deep venous thrombosis): Plan: right leg Noted in March 2022, has been on Eliquis since then was discovered by PCP by report was felt to be "chronic" based on his description has seen a vat operator, as per pt who felt was chronic and thus cleared for surgical intervention etiology of DVT?? no family h/o VTE never had DVT or PE prior to recent continue to hold Eliquis. Will need to follow up timing of resumption as outpatient follows with Dr Ramos, jarred/onc, [facility] (6) Pacemaker: Plan: Implanted for symptomatic bradycardia, no issues (7) CKD (chronic kidney disease): Plan: Creatinine baseline appears 1.331.55, admitting creatinine 1.41 Cr today 1.17 baseline CrCl 40s/50s c/w stage 3a CKD bmp am in am for stability (8) Status post total hip replacement, left: Plan: 07/21/[address] Tobias WBAT to left leg hip precautions appreciate visit by orthopedics (9) Hypertension: Plan: BPs have been starting to creep up back to baseline status; thus, cont to hold chlorthalidone, Lasix, and resume olmesartan repeat labs AM Plan DVT proph - SCDs; chemical means contraindicated due to acute GI bleeding. Offered to call family to update, pt stated was not necessary Admission and Anticipated Discharge Date Admission Date: August 08, 2022 Subjective Patient reports he is feeling better. Wants to ambulate today. Diet has been advanced. Despite drop in hgb to 8.1 this morning, he denies any further overt GIB. Continues PPI ggt. No abdominal pain, n/v or other GI complaints. Review of Systems Review of Systems: gen - "I feel better today" cv - no cp, no orthopnea, denies dizziness with standing pulm - no dyspnea GI - no nausea or vomiting, no BM yet this morning Respiratory: denies sob Cardiovascular: Additional Comments: denies chest pain Gastrointestinal: stopped passing brian stools, no stool production yet today Neurologic: no deficits Physical Exam Physical Exam: WDWN in NAD in NAD Cardiovascular: RRR, no murmur, no edema Gastrointestinal (Abdomen): normal bowel sounds, soft, nontender, no hepatosplenomegaly Musculoskeletal: no cyanosis or clubbing, extremities motor strength 5/5 Neurologic: PERRL, EOMI, accommodation nl, no face palsy, no dysarthria Results & Data Results & Data Vital Signs (Past 12 Hours) Vital Signs Temp Pulse Pulse Pulse Resp BP Pulse Ox 08/12/22 08:37 63 08/12/22 07:58 36.6 C 86 20 147/77 H 97 08/12/22 00:00 66 08/12/22 02:39 36.6 C 71 20 121/73 94 O2 Del Method 08/12/22 08:37 08/12/22 07:58 Room Air 08/12/22 00:00 08/12/22 02:39 Room Air PG Care Time/CCT Total # of Minutes Spent Total Time Spent with Patient: Total time spent is greater than 50% in coordination of care (as documented) at patient's floor/unit and/or counseling patient: Coding Level of Care Code 69807 SUB INP/OBS CARE 2/35MIN Diagnoses Acute upper GI bleed K92.2 Acute blood loss anemia D62 Duodenal ulcer with hemorrhage K26.4 Hypotension I95.9 DVT (deep venous thrombosis) I82.409 Pacemaker Z95.0 CKD (chronic kidney disease) N18.9 Status post total hip replacement, left Z96.642 Hypertension I10
[2022-08-12] MEDS ORDERED: OLMESARTAN MEDOXOMIL 20 MG TAB PO SCH (12:15)
[2022-08-12] MEDS: LOSARTAN POTASSIUM 50 MG TAB PO SCH (13:47)
[2022-08-12] MEDS: PANTOprazole 40 MG TAB PO SCH ×2 (13:47→20:36)
[2022-08-12 16:03] LABS: Hematocrit (blood only) 26.4 % (42.0-52.0); Mean Corpuscular Hemoglobin 31.5 pg (25.0-34.0); Mean Corpuscular Hgb Conc 34.1 g/dL (32.0-36.0); Mean Corpuscular Volume 92.3 fL (80.0-100.0); Mean Platelet Volume 8.8 fL (9.4-12.4); Platelet Count 249 K/uL (130-400); RDW Coefficient of Variation 15.6 % (11.5-14.5); RDW Standard Deviation 49.5 fL (36.4-46.3); Red Blood Count 2.86 M/uL (4.70-6.10); White Blood Count 7.18 K/ul (4.8-10.8)
[2022-08-13 06:10] LABS: Hematocrit (blood only) 24.2 % (42.0-52.0); Hemoglobin 8.1 g/dl (14.0-18.0); Mean Corpuscular Hemoglobin 31.3 pg (25.0-34.0); Mean Corpuscular Hgb Conc 33.5 g/dL (32.0-36.0); Mean Corpuscular Volume 93.4 fL (80.0-100.0); Mean Platelet Volume 9.2 fL (9.4-12.4); Platelet Count 231 K/uL (130-400); RDW Coefficient of Variation 16.1 % (11.5-14.5); RDW Standard Deviation 50.7 fL (36.4-46.3); Red Blood Count 2.59 M/uL (4.70-6.10); White Blood Count 4.99 K/ul (4.8-10.8)
[2022-08-13 06:23] LABS: BUN Creatinine Ratio 11.1 (10-20); Creatinine Clr Calc Pharmacy 51.8 ml/min; Est GFR (Non-African American) 53.5 ml/min; Potassium 3.2 mmol/L (3.5-5.1)
--- NOTE | 2022-08-13 08:48 | Orthopedic Progress Note ---
Date of Service August 13, 2022 Assessment & Plan (1) Status post total hip replacement, left: Plan: Patient is postop left total hip arthroplasty on July 21, [address] Tobias Patient's H&H is 8.1 at this time he is asymptomatic. He was advised on continue with hip precautions. Recommend sleeping with a pillow between legs. Cont WBAT w/ walker maintaining hip precautions He will continue with the SHLOMO hose for DVT prophylaxis. May remove at night to s leep and put on in the am Continue to hold aspirin and anticoagulation. Continue with PT/OT Follow-up with Dr. Tobias as scheduled. Present on Admission?: Yes Admission and Anticipated Discharge Date Admission Date: August 08, 2022 Subjective Pt was seen this am, approx 8:30, sitting in bed. He is in good spirits. He denies any dizziness or SOB. He states he is feeling pretty good. He denies any pain in the left hip. He is hoping he will be able to go home today or tomorrow. He offers no concerns. He denies any fever, chills, night sweats, or CP. Review of Systems Review of Systems: Please refer to H&P Physical Exam Physical Exam: General: alert and oriented x3 conversive and pleasant. no acute distress. Musculoskeletal/integumentary: Left hip incision is well-healed. Few Steri- Strips are rolled up and remain. These were removed at the request of patient. The incision remained well approximated negative for any drainage or erythema. He has no palpable tenderness surrounding the incision. He has small resolving hematoma at the distal incision. Negative for any fluctuance. He is able to tolerate range of motion in all planes without any assistance or pain. Negative logroll. Able to perform straight leg raise. Calf remains soft and nontender. Bilateral lower extremities are neurovascular intact. Patient was assisted to the toilet using walker. He is weightbearing as tolerated no pain. No reports of dizziness. Results & Data Vital Signs (Past 12 Hours) Vital Signs Temp Pulse Pulse Resp BP Pulse Ox O2 Del Method 08/13/22 08:00 36.8 C 88 18 118/69 97 Room Air 08/13/22 05:00 36.7 C 73 18 120/63 94 Room Air 08/12/22 23:00 74 08/12/22 23:34 36.8 C 72 18 124/63 96 Room Air Laboratory Results 08/13/22 08/13/22 08/12/22 Range/Units 05:37 05:37 14:39 WBC 4.99 7.18 (4.8-10.8) K/ul RBC 2.59 L 2.86 L (4.70-6.10) M/uL Hgb 8.1 L 9.0 L (14.0-18.0) g/dl Hct 24.2 L 26.4 L (42.0-52.0) % MCV 93.4 92.3 (80.0-100.0) fL MCH 31.3 31.5 (25.0-34.0) pg MCHC 33.5 34.1 (32.0-36.0) g/dL RDW Std Deviation 50.7 H 49.5 H (36.4-46.3) fL RDW Coeff of Qian 16.1 H 15.6 H (11.5-14.5) % Plt Count 231 249 (130-400) K/uL MPV 9.2 L 8.8 L (9.4-12.4) fL Sodium 141 (136-145) mmol/L Potassium 3.2 L (3.5-5.1) mmol/L Chloride 109 H (98-107) mmol/L Carbon Dioxide 27 (21-32) mmol/L Anion Gap 5 (3-11) BUN 14 (6-23) mg/dl Creatinine 1.26 (0.6-1.4) mg/dl Est Cr Clr Drug Dosing 51.8 ml/min Est GFR ( Amer) 62.0 ml/min Est GFR (Non-Af Amer) 53.5 ml/min BUN/Creatinine Ratio 11.1 (10-20) Glucose 92 (70-99(Fasting)) mg/dl Calcium 8.0 L (8.6-10.3) mg/dl
[2022-08-13] MEDS: PANTOprazole 40 MG TAB PO SCH ×2 (09:02→20:19)
[2022-08-13] MEDS: SERTRALINE HCL 50 MG TABLET PO SCH (09:02)
[2022-08-13] MEDS: LOSARTAN POTASSIUM 50 MG TAB PO SCH (09:02)
--- NOTE | 2022-08-13 11:47 | Hospitalist Progress Note ---
Date of Service August 13, 2022 Assessment & Plan (1) Acute upper GI bleed: Plan: 2nd to duodenal ulcer s/p 3 units PRBCs since admission stool remains dark, no sharifa blood Hgb 8.5-->7.0-unit blood given->8.6-->7.7-->9.0-->8.1-->9.0-->8.1 Eliquis + asa on hold PPI drip will be changed to oral bid diet advanced to low residue appreciate GI assistance reviewed with RN nicole SOLIS to chair (2) Acute blood loss anemia: Plan: 2nd to #1/#3 s/p 3 units PRBCs since admission follow H/H in AM, Pt made aware that based on Hgb will determine timing of dc discussed with son Franklin on speaker phone in pt room Hgb has not started to rise and his concern is that the patient lives >1 hour from a hospital and if he starts to bleed, the distance from a facility could be catastrophic. As such will hold dc for 1 more day and recheck Hgb in AM given Venofer 200mg x 1 (3) Duodenal ulcer with hemorrhage: Plan: duodenal ulcer likely the source of his upper GI bleed per EGD -- "One non-bleeding cratered duodenal ulcer with a visible vessel was found in the duodenal bulb. The lesion was 10 mm in largest dimension. Area was successfully injected with 2 mL of a 0.1 mg/mL solution of epinephrine for hemostasis. Fulguration to ablate the lesion by bipolar probe was successful." Plan - * per GI ok for clear liquid diet, depending on Hgb, consider advance diet to full liquid, diet advanced to low residue * PPI drip x 72 hours, now transitioned to oral * hold eliquis, asa, NSAIDs, etc sent stool for H Pylori Ag Negative * suspect chronic aspirin use contributed to this along with recent stress of his hip surgery, etc appreciate GI assistance will need close follow up with PCP (Karla) to recheck Hgb early next week and his usual sourcer Dr. Acevedo in [place]. Pt states he did have a colonoscopy ~11 yrs ago that was normal (4) Hypotension: Plan: resolved 2nd to #1, #2 dc IVF was holding all home BP meds BP 133/65 resumed Olmesartan. 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 no family h/o VTE never had DVT or PE prior to recent continue to hold Eliquis. Will need to follow up timing of resumption as outpatient follows with Dr Ramos, heme/onc, [facility] (6) Pacemaker: Plan: Implanted for symptomatic bradycardia, no issues (7) CKD (chronic kidney disease): Plan: Creatinine baseline appears 1.331.55, admitting creatinine 1.41 Cr today 1.26 baseline CrCl 40s/50s c/w stage 3a CKD BUN (elevated due to UGI bleed) now normal at 14 (8) Status post total hip replacement, left: Plan: 07/21/[address] Tobias WBAT to left leg hip precautions appreciate visit by orthopedics (9) Hypertension: Plan: BPs have been starting to creep up back to baseline status; thus, cont to hold chlorthalidone, Lasix, and resumed olmesartan Plan DVT proph - SCDs; chemical means contraindicated due to acute GI bleeding. Offered to call family to update, pt stated was not necessary Admission and Anticipated Discharge Date Admission Date: August 08, 2022 Subjective Tolerating diet Review of Systems Review of Systems: gen - "I feel better today" cv - no cp, no orthopnea, denies dizziness with standing pulm - no dyspnea GI - no nausea or vomiting, no BM yet this morning Respiratory: denies sob Cardiovascular: Additional Comments: denies chest pain Gastrointestinal: stopped passing brian stools, no stool production yet today Neurologic: no deficits Physical Exam Physical Exam: WDWN in NAD in NAD Cardiovascular: RRR, no murmur, no edema Gastrointestinal (Abdomen): normal bowel sounds, soft, nontender, no hepatosplenomegaly Musculoskeletal: no cyanosis or clubbing, extremities motor strength 5/5 Neurologic: PERRL, EOMI, accommodation nl, no face palsy, no dysarthria Results & Data Results & Data Vital Signs (Past 12 Hours) Vital Signs Temp Pulse Pulse Resp BP Pulse Ox O2 Del Method 08/13/22 09:05 36.9 C 82 18 133/65 97 Room Air 08/13/22 08:00 36.8 C 88 18 118/69 97 Room Air 08/13/22 05:00 36.7 C 73 18 120/63 94 Room Air PG Care Time/CCT Total # of Minutes Spent Total Time Spent with Patient: Total time spent is greater than 50% in coordination of care (as documented) at patient's floor/unit and/or counseling patient: Coding Level of Care Code 91792 SUB INP/OBS CARE 2/35MIN Diagnoses Acute upper GI bleed K92.2 Acute blood loss anemia D62 Duodenal ulcer with hemorrhage K26.4 Hypotension I95.9 DVT (deep venous thrombosis) I82.409 Pacemaker Z95.0 CKD (chronic kidney disease) N18.9 Status post total hip replacement, left Z96.642 Hypertension I10
[2022-08-14 07:07] LABS: Hematocrit (blood only) 24.6 % (42.0-52.0); Hemoglobin 8.1 g/dl (14.0-18.0); Mean Corpuscular Hgb Conc 32.9 g/dL (32.0-36.0); Mean Corpuscular Volume 94.3 fL (80.0-100.0); Mean Platelet Volume 9.3 fL (9.4-12.4); Platelet Count 228 K/uL (130-400); RDW Coefficient of Variation 16.2 % (11.5-14.5); RDW Standard Deviation 54.2 fL (36.4-46.3); Red Blood Count 2.61 M/uL (4.70-6.10); White Blood Count 5.05 K/ul (4.8-10.8)
[2022-08-14] MEDS: LOSARTAN POTASSIUM 50 MG TAB PO SCH (07:57)
[2022-08-14] MEDS: PANTOprazole 40 MG TAB PO SCH (07:58)
[2022-08-14] MEDS: SERTRALINE HCL 50 MG TABLET PO SCH (07:58)
[2022-08-14] MEDS ORDERED: CYANOCOBALAMIN 1000 MCG/ML VIAL IM ONE (13:15)
--- NOTE | 2022-08-14 14:18 | Discharge Summary ---
Date of Service August 14, 2022 Admission HPI Per Admitting Provider Tyler is an 81-year-old male with a past medical history of hip replacement 07/2022 on Eliquis who has felt fatigued for several days and for the last 2 days he had black tarry stools with each bowel movement. Had been lightheaded, has been without chest pain or dyspnea. Preoperative hemoglobin 11.3 has down trended to 7.9. His baseline creatinine is around 1.31.55, admitting creatinine is 1.41. BUN is acutely elevated to 55. Chest x-ray is without acute findings. EKG shows AsV paced rhythm with a QTc of 488. High-sensitivity troponin is normal. Past medical history of hypertension, BPH with LUTS, hyperlipidemia, past hyperglycemia. Reports was doing well until of this last week after a hip replacement. At Tuesday morning while at [facility] rehab had black bowel movement for the first time. Next 2 days continued to have black bowel movements and he became lightheaded. Last BM was the morning of admission. Stool was dark/black with blood and red color to the toilet water before flushing. First symptoms were 3 days ago, and maybe had a small amount of lightheadedness prior to that. No prior history of GI bleeding Had a colonoscopy ~10-12 years ago and [facility] which was normal and OK for 10 year followup. No abdominal pain. No acid reflux. No epigastric pain. Has been burping more lately, but no indigestion. He has not been nauseous and has not vomited. He has no chest pain, chest pressure, difficulty breathing, orthopnea but does have easily fatigue and lightheadedness on standing and has felt presyncopal in the 3 days [employer] as noted. Reports his left arm is at baseline weaker than his right arm, but this has not changed and denies any focal weakness in any numbness/tingling/sensory change EF55% No heart attacks. Had a pacer for symptomatic bradycardia. Had wire replacement Dec last year, otherwise no problems. Was originally placed by Dr. Summers and now follows with [facility] No lung problems Takes baby aspirin 81mg daily for primary prevention of IN. No history of stents. Took Eliquis the morning of admission ~9am. Medical History: Reviewed Medications: Reviewed Surgical History: Reviewed Family history: Reviewed Allergies: Reviewed. NKDA Social History: Former , no recent tobacco use Code Status: Full code Principal Diagnosis Acute Blood Loss Anemia Duodenal Ulcer EGD report:"One non-bleeding cratered duodenal ulcer with a visible vessel was found in the duodenal bulb. The lesion was 10 mm in largest dimension. Area was successfully injected with 2 mL of a 0.1 mg/mL solution of epinephrine for hemostasis. Fulguration to ablate the lesion by bipolar probe was successful. A 10 to 30 mm non-bleeding diverticulum was found in the second portion of the duodenum." Discharge Exam WDWN in NAD in NAD Constitutional afebrile Neck trachea midline, no thyromegaly Respiratory normal respiratory effort, lungs clear to auscultation Cardiovascular RRR, no murmur, no edema Gastrointestinal (Abdomen) normal bowel sounds, soft, nontender, no hepatosplenomegaly Musculoskeletal no cyanosis or clubbing, extremities motor strength 5/5 Neurologic PERRL, EOMI, accommodation nl, no face palsy, no dysarthria Discharge Data Allergies Allergy/AdvReac Type Severity Reaction Status Date / Time Iodinated Contrast Media Allergy Mild Shakiness Verified 08/09/22 13:00 Consultations 08/08/22 15:05 ED Decision to Admit Stat 08/08/22 17:07 Consult Gastroenterology Routine Procedures Performed Operation Date: 08/09/22 17:15 Actual Procedures p EGD Hemostasis - Cristi Marie Case, DO Hospital Course (1) Acute upper GI bleed: 2nd to duodenal ulcer s/p 3 units PRBCs since admission stool has become brown, no longer blck Hgb 8.5-->7.0-unit blood given->8.6-->7.7-->9.0-->8.1-->9.0-->8.1-->8.1 Eliquis + asa on hold For now would not resume Eliquis or ASA. will be dc on oral PPI bid diet advanced to low residue and is tolerating appreciate GI assistance reviewed plans with in room and son and dgt both on speaker phones in the room Will give 1 dose Vitamin B-12 prior to dc (2) Acute blood loss anemia: 2nd to #1/#3 s/p 3 units PRBCs since admission will need follow up H/H as outpt in ~5 days, and then weekly until back to baseline given Venofer 200mg x 1 Will give 1 dose of Vit B-12 prior to dc (3) Duodenal ulcer with hemorrhage: duodenal ulcer likely the source of his upper GI bleed sent stool for H Pylori Ag Negative * suspect chronic aspirin use contributed to this along with recent stress of his hip surgery, etc appreciate GI assistance will need close follow up with PCP ([facility] [place]) to recheck Hgb early next week and his usual debt collection specialist Dr. Acevedo in [place]. Pt states he did have a colonoscopy ~11 yrs ago that was normal (4) Hypotension: resolved 2nd to #1, #2 dc IVF BP is perfect, can resume preadmit BP meds at time of dc BP 133/65 resumed Olmesartan. (5) DVT (deep venous thrombosis): right leg Noted in March 2022, has been on Eliquis since then was discovered by PCP by report was felt to be "chronic" based on his description has seen a meat pickler, as per pt who felt was chronic and thus cleared for surgical intervention etiology of DVT?? no family h/o VTE never had DVT or PE prior to recent continue to hold Eliquis. Will need to follow up timing of resumption as outpatient. Will defer timing of resumption of Eliquis to outpt medicine based on his HGB, but would not resume at this time with risk:benefit follows with Dr Ramos, heme/onc, [facility] system (6) Pacemaker: Implanted for symptomatic bradycardia, no issues (7) CKD (chronic kidney disease): Creatinine baseline appears 1.331.55, admitting creatinine 1.41 Cr today 1.26 baseline CrCl 40s/50s c/w stage 3a CKD BUN (elevated due to UGI bleed) now normal at 14 (8) Status post total hip replacement, left: 07/21/[address] Tobias WBAT to left leg hip precautions appreciate visit by orthopedics (9) Hypertension: BPs have been starting to creep up back to baseline status; would recheck BP when seen by PCP Plan DVT proph - SCDs; chemical means contraindicated due to acute GI bleeding. Offered to call family to update, pt stated was not necessary Total Time Total Time Spent Total Time Spent (In Minutes): 55 Discharge Plan Discharge Items Patient Disposition: Home - Self-Care Reason For Visit: AGIB ON ELIQUIS Discharge Diagnosis: Acute Diverticular Bleed in patient on Aspirin and Eliquis Blood Loss Anemia Condition on Discharge: Good Activity: Resume your previous activity Activity Comment: just don't push Lifting: Gradually increase as tolerated Bathing: No limitations Driving/Machine Use: Resume 1 day after discharge Weightbearing: Full weightbearing Non-emergency contact: Primary Care Provider and Transportation Officer Call non-emergency contact if: you have any medication questions Follow-up/Referrals: Magen Acosta DO [Primary Care Provider] - (within week will need repeat CBC in 4-5 days Will also need follow up with your GI doctor (Kristina) in 4-6 weeks for possible repeat EGD, as per directed by your PCP) Bari Tobias MD [Surgeon] - 09/06/22 9:15 am Diet: Regular Diet Comment: easy to digest Addtl Attending Provider Instructions: Extensive UGI bleed with resultant blood loss anemia. Hgb has been stable at 8.1 over past 48 hrs. Should have repeat CBC in 4-5 days. Consider evaluation by debt collection specialist as per PCP. Would not resume Eliquis/Aspirin until has demonstrated further stabilization of Hgb. He does not have absolute restrictions, but should not over exert until demonstrates improvement in blood count. Pending Studies at Discharge: No Stand-Alone Forms: My [facility] Parking Panda, Smoking Cessation Medications and DC Order Prescriptions: New pantoprazole 40 mg Tablet,Delayed Release (Dr/Ec) 40 mg PO BID Qty: 60 3RF Continued potassium chloride 10 mEq Capsule, Extended Release 10 meq PO QAM chlorthalidone 25 mg Tablet 25 mg PO Q OTHER DAY multivitamin Tablet 1 tab PO QAM baclofen 10 mg Tablet 10 mg PO TID furosemide [Lasix] 20 mg Tablet 20 mg PO QAM sertraline [Zoloft] 50 mg Tablet 50 mg PO HS olmesartan 20 mg tablet 20 mg PO DAILY Discontinued aspirin 81 mg Tablet,Delayed Release (Dr/Ec) 81 mg PO QAM Eliquis 5 mg Tablet 5 mg PO BID Discharge Orders: Discharge Order (Routine); Ordered 08/14/22 Ordered By: Severino Rodriguez/Other Patient Handouts: Low-Salt Choices, How Your Hip Works, Iron Supplements, Anatomy of the Digestive System Admission Data Admit Date/Time: 08/08/22 15:58 Attending Provider: Severino Hu Admit Provider: Aiden Tejada Primary Care Provider: Magen Acosta Other Providers: Aiden Tejada ; Og Rogers ; Jonh Ballesteros ; E[facility] Other Interventions: Discharge Summary Assessment (RN) Last Done: 08/14/22 11:16 Coding Level of Care Code 96939 INP/OBS DISCH >30 MIN Diagnoses Acute upper GI bleed K92.2 Acute blood loss anemia D62 Duodenal ulcer with hemorrhage K26.4 Hypotension I95.9 DVT (deep venous thrombosis) I82.409 Pacemaker Z95.0 CKD (chronic kidney disease) N18.9 Status post total hip replacement, left Z96.642 Hypertension I10 Time Spent (min) 55
== END 2022-08-14 15:08 | disposition home health service (06) | DRG 378 ==
LOC: ED 13:32 → 2E 15:58 → SUATTDRO 15:58 → 2E 16:31